=== PATIENT | male | born 1945 | race Caucasian/White ===

== ENCOUNTER → 2021-05-21 08:14 | Outpatient (BNVA) | payer OTHER, SELFPAY | PROVIDERS: PCP Family Medicine; Visit Provider Psychiatry & Neurology Neurology ==

== ENCOUNTER → 2021-07-21 08:23 | Outpatient (BNVA) | payer OTHER, SELFPAY | PROVIDERS: PCP Family Medicine; Visit Provider Nurse Practitioner Family | DX: Z13.89 Encounter for screening for other disorder (principal) ==

== ENCOUNTER → 2021-09-22 08:24 | Outpatient (BNVA) | payer OTHER, SELFPAY | PROVIDERS: PCP Family Medicine; Visit Provider Nurse Practitioner Family | DX: G57.50 Tarsal tunnel syndrome, unspecified lower limb (principal) ==

== ENCOUNTER 2022-02-06 07:18 | Outpatient (REF) | payer OTHER, SELFPAY ==
--- NOTE | ~2022-02-06 | MR_ITS ---
EXAMINATION: MR LUMBAR SPINE WITHOUT CONTRAST CLINICAL INFORMATION: 76-year-old with self-reported neuropathy in both feet, more on right. Self-reported bilateral leg pain. Tarsal tunnel syndrome, right foot numbness, radiculopathy. COMPARISON: None TECHNIQUE: MRI of the lumbar spine was obtained using routine sequences without contrast. FINDINGS: Coronal Alignment: There is S-shaped thoracolumbar scoliotic curvature, minimally convex to the right at L4-L5 and moderately convex to the left at L1-L2. Sagittal Alignment: There is trace rotatory retrolisthesis at L2-L3 asymmetric to the left. Mild rotatory retrolisthesis at L3-L4 asymmetric to the left. Lumbar lordotic curvature is maintained in the sagittal plane. Lumbosacral Junction: Normal. Five nonrib-bearing lumbar-type vertebral bodies. Vertebral Bodies: Vertebral body heights are well maintained. Disc Spaces and Endplates: Mild disc space height loss at L5-S1 with disc desiccation. Jmviomrh-tr-inzrog disc space height loss asymmetric to the left at L4-L5, with intradiscal degenerative signal changes, tiny Schmorl's nodes and siqx-sc-hkksexee spondylosis asymmetric to the left. Mild disc volume loss at L3-L4 with disc desiccation and tiny Schmorl's nodes with mild spondylosis asymmetric to the right. Ccwcqvxs-ns-meapqt disc space height loss asymmetric to the right, with disc desiccation, Schmorl's nodes and moderate spondylosis asymmetric to the right. Spinal Canal: No abnormal developmental findings. Bone Marrow: No significant marrow-replacing process or bone marrow edema. Type II degenerative marrow signal changes noted along the endplates from L2-L3 to L5-S1 inclusive. Conus Medullaris: Terminates at L1-L2. Morphology and signal is normal. Intradural Nerve Roots: Within normal limits. L5-S1: There is a central to right paramedian disc herniation which abuts the traversing right S1 nerve root and ventral thecal sac. There is minor right and mild left-sided facet arthrosis with mild left-sided neural foraminal narrowing without exiting neural impingement. No significant spinal canal stenosis. L4-L5: Minor concentric disc bulging is noted with slight flattening of the ventral dural sac asymmetric to the left. There is predominantly left-sided mild ligamentum flavum thickening with sxps-zz-cntmkcab left-sided facet arthropathy and xlig-kv-juyhzesd left subarticular recess stenosis slightly encroaching on the origin of the left S1 nerve root sleeve without evidence central spinal canal stenosis. There is jwip-ws-ifoxftrk left-sided neural foraminal stenosis without exiting neural impingement. L3-L4: There is disc bulging and central disc-osteophyte complex with a superimposed left foraminal disc protrusion, and there is rhfq-kd-pdkaneld bilateral facet arthropathy with ligamentum flavum thickening. Prominent dorsal epidural fat pad noted with mild central spinal canal stenosis. There is ssuqhguy-km-tkytxi left subarticular and lateral recess stenosis. There is moderate left-sided and mild right-sided neural foraminal stenosis without definite exiting neural impingement. L2-L3: Posterolateral disc-osteophyte complex asymmetric to the right with jpkinbcc-hw-rgowbs right-sided and kmqf-pl-otfwadxb left-sided facet arthropathy. Mild flattening of the ventral dural sac is noted without significant central spinal canal stenosis. There is irbo-tm-kbgehpye right and mild left subarticular zone and lateral recess stenosis with possible encroachment on the intradural segment of the traversing right L3 nerve root. There is tpbi-gd-usdxsruq right-sided neural foraminal stenosis, with right lateral disc-osteophyte complex contacting the extraforaminal right L2 nerve root. L1-L2: No significant disc bulge or herniation. Kvqi-sn-aijwwtjw bilateral facet arthropathy noted without significant canal stenosis. No significant neural foraminal stenosis. There is mild bilateral facet arthropathy at T12-L1 and cchp-fd-ztsetzjc bilateral facet arthropathy at T11-T12. Paraspinal/Retroperitoneal: The paravertebral soft tissues appear grossly unremarkable. MR/MR lumbar spine wo con IMPRESSION: 1. Thoracolumbar scoliotic curvature, as described above, with mild degrees of rotatory retrolisthesis at L2-L3 and L3-L4. 2. Multilevel DDD and spondylosis, as detailed by level above, with multilevel disc bulging, disc herniations and disc-osteophyte complexes, with multilevel bilateral facet arthropathy. Mild central spinal canal stenosis at L3-L4 and multilevel subarticular recess stenosis, as detailed by level above. L5-S1 disc herniation slightly impinges on the traversing right S1 nerve root. 3. Multilevel bilateral predominantly mild and ukiw-wm-usewxyso degrees of neural foraminal stenosis, as detailed by level above.
== END 2022-02-06 07:19 | disposition home or self-care (01) ==
LOC: HO.MRI 07:18
PROVIDERS: Visit Provider Nurse Practitioner Family
DX: M54.16 Radiculopathy, lumbar region (principal); R20.0 Anesthesia of skin; R20.8 Other disturbances of skin sensation
CPT/HCPCS: 72148

== ENCOUNTER → 2022-04-22 08:56 | Outpatient (BNVA) | payer OTHER, SELFPAY | PROVIDERS: PCP Family Medicine; Visit Provider Nurse Practitioner Family | DX: Z13.89 Encounter for screening for other disorder (principal) ==

== ENCOUNTER → 2022-08-20 08:57 | Outpatient (BNVA) | payer OTHER, SELFPAY | PROVIDERS: PCP Family Medicine; Visit Provider Nurse Practitioner Family ==

== ENCOUNTER 2023-05-03 14:25 | Outpatient (AMB) | payer OTHER, SELFPAY ==
--- NOTE | 2023-05-03 14:29 | MHC.OFFVIS ---
Intake Vital Signs 05/03/23 14:38 Weight 173 lb 2 oz BP 100/60 Blood Pressure Location Lt brachial Position Sitting Pulse 97 Pulse Source Pulse Oximeter Pulse Oximetry (%) 94 Oxygen Delivery Method Room Air Intake Visit Reasons: Follow up-Conf Intake Note: Patients presents for follow up acupuncture became expensive and feeling numbness on feet Allergies No Known Allergies Allergy (Verified 05/03/23 14:34) Medication List - Last Reconciled 05/03/23 by Prasanna Torres CNP lisinopril 5 mg PO DAILY pantoprazole 40 mg PO DAILY tamsulosin (Flomax) 0.4 mg PO DAILY HPI HPI Comments History of Present Illness Details 76 y/o male patient presents for follow up of bilateral feet burning pain and numbness. Pt reports that he had acupuncture therapy for couple of months, and it was helpful to reduce burning sensation and numbness. However, his insurance did not cover it, and he stopped acupuncture. Now he feels more numbness and tingling, he can't feel bottom of his feet. He uses cane to prevent fall. Pt reports bilateral feet burning but manageable. He was taking cymbalta 60 mg qAM and 30 mg qHS before acupuncture. He tried compression stocking and it also helped to relieve swollen ankle, feet pain. 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 Cervical spondylosis HTN (hypertension) Lumbar spondylosis Tarsal tunnel syndrome Surgical History H/O colonoscopy H/O hernia repair Family History Father Cancer Mother Dementia Family/Other Lung cancer Social History Alcohol intake: never Patient Tobacco Use Status: Never used Tobacco Review of Systems Const All systems reviewed & are unremarkable except as noted in HPI and below Physical Exam Vital Signs: Last Vital Signs Pulse 97 05/03/23 14:38 BP 100/60 05/03/23 14:38 Pulse Ox 94 05/03/23 14:38 Oxygen Delivery Method Room Air 05/03/23 14:38 Const General: cooperative and well developed Nutritional Appearance: average body habitus Orientation/consciousness: patient oriented x3 Neuro General: patient oriented x3, gait normal, tone normal, moves all extremities, no focal motor deficits and CN's II-XI intact bilaterally Motor exam (neuro): 5/5 motor strength present throughout Deep tendon reflexes (DTR's): Right brachioradialis reflex intensity grade: 2+, Left brachioradialis reflex intensity grade: 2+, Right patellar reflex intensity grade: 3+ and Left patellar reflex intensity grade: 4+ Psych Appearance: grossly normal Mental Status: mental status grossly normal Speech and movement: Normal speech and movement present Affect: normal affect Attitude: cooperative Assessment & Plan Assessment & Plan (1) Burning sensation of foot: Code(s): R20.8 - Other disturbances of skin sensation (2) Numbness of right foot: Code(s): R20.0 - Anesthesia of skin (3) Radiculopathy, lumbar region: Code(s): M54.16 - Radiculopathy, lumbar region Plan Advised patient to try cymbalta 20 mg BID to manage burning pain. May try Nirvive for feet numbness. Medications: New duloxetine 20 mg PO BID 30 days 60 caps 1RF Coding Level of Care Code Est Pt Level 3 (68727) Diagnoses Burning sensation of foot R20.8 Numbness of right foot R20.0 Radiculopathy, lumbar region M54.16
[2023-05-03 14:38] VITALS: BP 100/60; PULSE 97; O2SAT 94
== END 2023-05-03 15:04 | disposition home or self-care (01) ==
PROVIDERS: PCP Family Medicine; Visit Provider Nurse Practitioner Family
DX: R20.8 Other disturbances of skin sensation (principal); R20.0 Anesthesia of skin; M54.16 Radiculopathy, lumbar region
CPT/HCPCS: 99213

== ENCOUNTER → 2023-05-03 14:25 | Outpatient (BNVA) | payer OTHER, SELFPAY | PROVIDERS: PCP Family Medicine; Visit Provider Nurse Practitioner Family ==

== ENCOUNTER 2023-07-23 13:26 | Outpatient (AMB) | payer OTHER, SELFPAY ==
--- NOTE | 2023-07-23 13:29 | A.OFFVIS_ITS ---
Intake Vital Signs 07/23/23 13:34 Height 5 ft 11 in Weight 172 lb 8 oz BMI 24.1 BP 115/70 Blood Pressure Location Rt brachial Position Sitting Pulse 97 Pulse Source Pulse Oximeter Pulse Oximetry (%) 94 Oxygen Delivery Method Room Air Intake Visit Reasons: 2M f/u Neuropathy - COnf with Intake Note: Patient presents for 2 months F/U. Allergies No Known Allergies Allergy (Verified 07/23/23 13:33) HPI HPI Comments History of Present Illness Details 76 y/o male patient presents for follow up of bilateral feet burning pain and numbness. Pt tried Nirvive, and it helps a lot for the numbness, and he can feel bottom of his feet and ground. He uses cane to prevent fall. Pt reports bilateral feet burning but manageable. He is on cymbalta 20 mg BID. He tried amitriptyline in the past, and it helped to reduce burning pain. The burning pain is more bothersome at night, when he is rest. Pt reports that he had acupuncture therapy for couple of months, and it was helpful to reduce burning sensation and numbness. However, his insurance did not cover it, and he stopped acupuncture. He tried compression stocking and it also helped to relieve swollen ankle, feet pain. 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 Cervical spondylosis HTN (hypertension) Lumbar spondylosis Tarsal tunnel syndrome Surgical History H/O colonoscopy H/O hernia repair Family History Father Cancer Mother Dementia Family/Other Lung cancer Social History Alcohol intake: never Patient Tobacco Use Status: Never used Tobacco Review of Systems Const All systems reviewed & are unremarkable except as noted in HPI and below Physical Exam Vital Signs: Last Vital Signs Pulse 97 07/23/23 13:34 BP 115/70 07/23/23 13:34 Pulse Ox 94 07/23/23 13:34 Oxygen Delivery Method Room Air 07/23/23 13:34 BMI result Body Mass Index 24.1 Const General: cooperative and well developed Nutritional Appearance: average body habitus Orientation/consciousness: patient oriented x3 Neuro General: patient oriented x3, gait normal, tone normal, moves all extremities, no focal motor deficits and CN's II-XI intact bilaterally Motor exam (neuro): 5/5 motor strength present throughout Deep tendon reflexes (DTR's): Right brachioradialis reflex intensity grade: 2+, Left brachioradialis reflex intensity grade: 2+, Right patellar reflex intensity grade: 3+ and Left patellar reflex intensity grade: 4+ Psych Appearance: grossly normal Mental Status: mental status grossly normal Speech and movement: Normal speech and movement present Affect: normal affect Attitude: cooperative Assessment & Plan Assessment & Plan (1) Burning sensation of foot: Code(s): R20.8 - Other disturbances of skin sensation (2) Numbness of right foot: Code(s): R20.0 - Anesthesia of skin (3) Radiculopathy, lumbar region: Code(s): M54.16 - Radiculopathy, lumbar region Plan Advised patient to continue cymbalta 20 mg BID and start amitriptyline 25 mg q HS to manage burning pain. Continue to take Nirvive for feet numbness. Medications: New amitriptyline 25 mg PO BEDTIME 30 days 30 tabs 5RF Coding Level of Care Code Est Pt Level 3 (59531) Diagnoses Burning sensation of foot R20.8 Numbness of right foot R20.0 Radiculopathy, lumbar region M54.16
[2023-07-23 13:34] VITALS: BP 115/70; PULSE 97; O2SAT 94; BMI 24.1
== END 2023-07-23 13:52 | disposition home or self-care (01) ==
PROVIDERS: PCP Family Medicine; Visit Provider Nurse Practitioner Family
DX: R20.8 Other disturbances of skin sensation (principal); R20.0 Anesthesia of skin; M54.16 Radiculopathy, lumbar region
CPT/HCPCS: 99213

== ENCOUNTER → 2023-07-23 13:26 | Outpatient (BNVA) | payer OTHER, SELFPAY | PROVIDERS: PCP Family Medicine; Visit Provider Nurse Practitioner Family ==

== ENCOUNTER 2024-05-05 09:23 | Outpatient (REF) | payer OTHER, SELFPAY ==
--- NOTE | ~2024-05-05 | XR_ITS ---
EXAMINATION: XR LUMBAR SPINE 4 OR MORE VIEWS HISTORY: M41.9 - Scoliosis, unspecified COMPARISON: There are no prior studies for comparison. FINDINGS: AP, and neutral, flexion, and extension lateral views of the lumbar spine are submitted. Osseous mineralization is normal. There is moderate rotatory levoscoliosis. The vertebral bodies maintain normal height. There is mild retrolisthesis of L3 on L4. This does not change with flexion or extension. There is severe degenerative disc disease at L2-3, with disc space narrowing and osteophyte formation. The visualized paraspinal soft tissues are unremarkable. XR/XR lumbar spine 4V min IMPRESSION: Moderate rotatory levoscoliosis. Severe degenerative disc disease at L2-3. Mild retrolisthesis of L3 on L4 without change with flexion or extension. Electronically signed by: Ivan Cutler MD 05/08/2024 02:37 PM [email or web address]
== END 2024-05-05 09:24 | disposition home or self-care (01) ==
LOC: HO.HOSX 09:23
PROVIDERS: PCP Family Medicine; Visit Provider Neurological Surgery
DX: M41.9 Scoliosis, unspecified (principal)
CPT/HCPCS: 72110

== ENCOUNTER 2024-05-05 09:23 | Outpatient (AMB) | payer OTHER, SELFPAY ==
--- NOTE | 2024-05-05 09:30 | HO.SPINEOV ---
Vital Signs 05/05/24 09:37 Height 5 ft 11 in Weight 178 lb BMI 24.8 Intake Visit Reasons: spinal stenosis Intake Note: Mr. Higgins is here today c/o low back pain that radiates down to the legs. Quality Assurance Director Required: No Allergies No Known Allergies Allergy (Verified 05/05/24 09:37) Physical Exam Vital Signs: BMI result Body Mass Index 24.8 Assessment & Plan Assessment & Plan (1) Lumbar scoliosis: Code(s): M41.9 - Scoliosis, unspecified Category: Medical Qualifiers: Scoliosis type: idiopathic Idiopathic scoliosis type: adolescent Qualified Code(s): M41.126 - Adolescent idiopathic scoliosis, lumbar region Plan: Dear colleague On 05/05/2024, I saw Mr. Miguel A Dudley, a self-referred patient with a chief complaint of low back pain. HPI: This 78-year-old male is coming in for back pain that radiates to his buttocks and posterior thighs. The pain increases with walking and standing. The pain improves with sitting or laying down. The symptoms have significantly progressed over the last 6 months. He is currently ambulating with a cane. He likes to lean over a shopping cart. He states that he is known with a lumbar scoliosis since childhood. He has been receiving injections at [facility] but wants to try different round and therefore he is coming in to see me. He denies weakness. He does have numbness of his feet caused by a polyneuropathy. He takes amitriptyline for the polyneuropathy. The following conservative treatment options were tried without success antiinflammatories, tylenol, physical therapy, cortisone shots PMH: Polyneuropathy Medications: [] Allergies: NKDA Social history: Physical Exam: Height 6 ft weight on that 178 lb. On inspection there was a lumbar degenerative curve towards the right side. Straight leg raise post produces pain in the posterior thigh. There is hypoesthesia of the bilateral feet. A reflexia. Radiological Studies: MRI done at [place] on 10/06/2023 shows a lumbar scoliosis and moderate L3-4 spinal stenosis. A standing x-ray today confirms the lumbar scoliosis with the apex at L3-4. Impression/Plan: This patient is suffering from neurogenic claudication. This might be coming from the L3-4 region. 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 I would like to refer him to our pain management team for an L3-4 epidural steroid injection. A positive result would translate in offering the patient an L3-4 laminotomy. He is aware though that a laminotomy may only produce short lived results inpatient with scoliotic curvature. He will return to my clinic if the injection was helpful. Thank you for allowing me to participate in your patients care. total time spent was 50 minutes in counseling ,coordination of plan, personal review of imaging, surgical decision making and subsequent plan Cesar Alas MD, PhD Spine Fellowship Trained Neurosurgeon Director, [facility] (2) Lumbar stenosis with neurogenic claudication: Code(s): M48.062 - Spinal stenosis, lumbar region with neurogenic claudication Category: Medical Plan: g Orders: Orders XR lumbar spine 4V min Today M41.9 - Scoliosis, unspecified Referrals Pain Management Referral M41.126 - Adolescent idiopathic scoliosis, lumbar region, M48.062 - Spinal stenosis, lumbar region with neurogenic claudication Coding Level of Care Code New Pt Level 4 (54175) Diagnoses Adolescent idiopathic scoliosis of lumbar region M41.126 Scoliosis type: idiopathic Idiopathic scoliosis type: adolescent Lumbar stenosis with neurogenic claudication M48.062
[2024-05-05 09:37] VITALS: BMI 24.8
== END 2024-05-05 10:38 | disposition home or self-care (01) ==
PROVIDERS: PCP Family Medicine; Visit Provider Neurological Surgery
DX: M41.126 Adolescent idiopathic scoliosis, lumbar region (principal); M48.062 Spinal stenosis, lumbar region with neurogenic claudication
CPT/HCPCS: 99204

== ENCOUNTER 2024-05-17 14:07 | Outpatient (AMB) | payer OTHER, SELFPAY ==
--- NOTE | 2024-05-17 14:09 | A.OFFVIS_ITS ---
Vital Signs 05/17/24 14:15 Height 5 ft 11 in Weight 175 lb 4 oz BMI 24.4 BP 126/77 Blood Pressure Location Rt brachial Position Sitting Pulse 85 Pulse Source Pulse Oximeter Intake Visit Reasons: Adolescent idiopathic scoliosis, lumbar region Intake Note: Pain today 08/26 Rn Telephone Triage Required: No Accompanied by: Self / Same As Patient Allergies No Known Allergies Allergy (Verified 05/05/24 09:37) HPI Comments Details: Miguel A is very pleasant 78 years old gentleman who presents in my office with complains on seemingly 2 sets of pain generators. He reports aching pain in the lower back with radiation into the bilateral buttocks and he reports tingling and burning sensation in bilateral feet he reports that the pain in the buttocks started to bother him recently. He used to have radiculopathy in 1 of his lower extremities for which he received epidural steroid injections by [facility]. However this new pain is different from what he had before. He has tingling and burning feet sensation he relates to chemotherapy he received 4 prostate cancer. He is currently on duloxetine and amitriptyline, he reports that amitriptyline helps him to sleep at night however he reports very minimal effects from duloxetine. He had side effects from Lyrica, and he tried gabapentin with no effect. He reports that flexing forward and flexing backwards are both painful however flexing backwards aggravate his pain more. Walking is standing aggravate his pain and sitting alleviates his pain. Sneezing coughing and straining down does not aggravate his pain. Application of the heat makes his pain better. He is able to sleep normally he can not do activities of daily living he take care of himself he can function normally. He reports that his pain is most severe in the morning. In terms of tissue damage he reports his pain is tiring and exhausting. He had an MRI of the lumbar spine results of which dictated as below. He had physical therapy done in [facility] with core exercises with minimal pain improvement. He got massage therapy acupuncture and 10s unit which are of them relief his pain minimally. He received epidural steroid injections with [facility] in the past. His past medical history significant for hypertension and history of prostate cancer. He denies smoking cigarettes. He denies drinking alcohol he drinks 3 cups of coffee a day and he denies recreational drugs. 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 Cervical spondylosis HTN (hypertension) Lumbar spondylosis Tarsal tunnel syndrome Surgical History H/O colonoscopy H/O hernia repair Family History Father Cancer Mother Dementia Family/Other Lung cancer Social History Alcohol intake: never Patient Tobacco Use Status: Never used Tobacco Review of Systems Const Reports no additional complaints Eyes Reports no additional complaints ENT Reports Normal hearing present Card Reports no additional complaints Resp Reports no additional complaints GI Reports no additional complaints Reports as per HPI Musc Reports as per HPI Neuro Reports as per HPI, Reports Normal hearing present, Denies Abnormal speech present, Reports confusion and Denies Sensory deficit (Neuro) Psych Reports no additional complaints and Reports confusion Physical Exam Vital Signs: Last Vital Signs Pulse 85 05/17/24 14:15 BP 126/77 05/17/24 14:15 BMI result Body Mass Index 24.4 Const General: no acute distress, alert, awake, Physically active and confusion Nutritional Appearance: average body habitus Orientation/consciousness: patient oriented x3 and confusion Eyes General: appearance normal, both eyes and all related structures Pupils: Equal, round and reactive pupils present EOM: EOMs intact bilaterally Neck Neck: Yes full ROM Chest Chest palpation & inspection: normal inspection of the chest Resp Effort & Inspection: normal respiratory effort, able to speak in complete sentences, normal respiratory pattern, no audible wheezes and no cough Cardio Jugular venous distension: no JVD GI Inspection: Yes normal to inspection Back/Spine/Pelvis Other: Flexing forward and flexing backwards both aggravate his pain. Loading test is negative bilaterally. Nash test is negative bilaterally. However pelvic compression test pelvic distraction test and thigh thrust test are positive bilaterally for sacroiliac joint problem. SLR is negative bilaterally. Lassegue test is negative bilaterally. There is tenderness on palpation in bilateral sacroiliac joint projections. There is tenderness on palpation in the projection of paraspinal spinal region lumbar spine but this tenderness is less than sacroiliac joint tenderness on palpation. Neuro General: patient oriented x3, gait normal and confusion Cranial nerves: Yes CN's II-XII intact bilaterally, Yes Equal, round and reactive pupils present, Yes Normal hearing present and Yes Ability to bilaterally elevate shoulders present Speech: No Abnormal speech present Gait exam (Neuro): Normal gait present Motor exam (neuro): 5/5 motor strength present throughout Sensory Exam: No Sensory deficit (Neuro) Extrem General: No pedal edema Psych Speech and movement: Normal speech and movement present Affect: normal affect Attitude: cooperative Thought process: Normal thought process present Thought content: Normal thought content present Insight: Good insight present (Psych) Judgement: Good judgement present (Psych) Results Reviewed Results Reviewed: MR LUMBAR SPINE WITHOUT CONTRAST CLINICAL INFORMATION: 76-year-old with self-reported neuropathy in both feet, more on right. Self-reported bilateral leg pain. Tarsal tunnel syndrome, right foot numbness, radiculopathy. COMPARISON: None TECHNIQUE: MRI of the lumbar spine was obtained using routine sequences without contrast. FINDINGS: Coronal Alignment: There is S-shaped thoracolumbar scoliotic curvature, minimally convex to the right at L4-L5 and moderately convex to the left at L1-L2. Sagittal Alignment: There is trace rotatory retrolisthesis at L2-L3 asymmetric to the left. Mild rotatory retrolisthesis at L3-L4 asymmetric to the left. Lumbar lordotic curvature is maintained in the sagittal plane. Lumbosacral Junction: Normal. Five nonrib-bearing lumbar-type vertebral bodies. Vertebral Bodies: Vertebral body heights are well maintained. Disc Spaces and Endplates: Mild disc space height loss at L5-S1 with disc desiccation. Amgzsmyc-if-rmwyke disc space height loss asymmetric to the left at L4-L5, with intradiscal degenerative signal changes, tiny Schmorl's nodes and orsa-lk-fvulrvjn spondylosis asymmetric to the left. Mild disc volume loss at L3-L4 with disc desiccation and tiny Schmorl's nodes with mild spondylosis asymmetric to the right. Cvntnnwa-sm-nbnopt disc space height loss asymmetric to the right, with disc desiccation, Schmorl's nodes and moderate spondylosis asymmetric to the right. Spinal Canal: No abnormal developmental findings. Bone Marrow: No significant marrow-replacing process or bone marrow edema. Type II degenerative marrow signal changes noted along the endplates from L2-L3 to L5-S1 inclusive. Conus Medullaris: Terminates at L1-L2. Morphology and signal is normal. Intradural Nerve Roots: Within normal limits. L5-S1: There is a central to right paramedian disc herniation which abuts the traversing right S1 nerve root and ventral thecal sac. There is minor right and mild left-sided facet arthrosis with mild left-sided neural foraminal narrowing without exiting neural impingement. No significant spinal canal stenosis. L4-L5: Minor concentric disc bulging is noted with slight flattening of the ventral dural sac asymmetric to the left. There is predominantly left-sided mild ligamentum flavum thickening with xxco-qe-nfvhomox left-sided facet arthropathy and lmei-oy-piiezhuu left subarticular recess stenosis slightly encroaching on the origin of the left S1 nerve root sleeve without evidence central spinal canal stenosis. There is kqxt-no-fndqbxet left-sided neural foraminal stenosis without exiting neural impingement. L3-L4: There is disc bulging and central disc-osteophyte complex with a superimposed left foraminal disc protrusion, and there is kqjj-kq-srivwpzi bilateral facet arthropathy with ligamentum flavum thickening. Prominent dorsal epidural fat pad noted with mild central spinal canal stenosis. There is ztmxmkyq-my-ufpzot left subarticular and lateral recess stenosis. There is moderate left-sided and mild right-sided neural foraminal stenosis without definite exiting neural impingement. L2-L3: Posterolateral disc-osteophyte complex asymmetric to the right with ityxlkrw-ru-wgurvf right-sided and xziz-lm-yxbedokr left-sided facet arthropathy. Mild flattening of the ventral dural sac is noted without significant central spinal canal stenosis. There is skah-kc-xjnuxcqe right and mild left subarticular zone and lateral recess stenosis with possible encroachment on the intradural segment of the traversing right L3 nerve root. There is ydwj-fl-tjeogtml right-sided neural foraminal stenosis, with right lateral disc-osteophyte complex contacting the extraforaminal right L2 nerve root. L1-L2: No significant disc bulge or herniation. Pefm-ih-qkzearro bilateral facet arthropathy noted without significant canal stenosis. No significant neural foraminal stenosis. There is mild bilateral facet arthropathy at T12-L1 and ibir-ey-ssjvbnmk bilateral facet arthropathy at T11-T12. Paraspinal/Retroperitoneal: The paravertebral soft tissues appear grossly unremarkable. IMPRESSION: 1. Thoracolumbar scoliotic curvature, as described above, with mild degrees of rotatory retrolisthesis at L2-L3 and L3-L4. 2. Multilevel DDD and spondylosis, as detailed by level above, with multilevel disc bulging, disc herniations and disc-osteophyte complexes, with multilevel bilateral facet arthropathy. Mild central spinal canal stenosis at L3-L4 and multilevel subarticular recess stenosis, as detailed by level above. L5-S1 disc herniation slightly impinges on the traversing right S1 nerve root. 3. Multilevel bilateral predominantly mild and rpdb-wm-ohaqfnvb degrees of neural foraminal stenosis, as detailed by level above. Assessment & Plan Assessment & Plan (1) Vertebrogenic low back pain: Code(s): M54.51 - Vertebrogenic low back pain Category: Medical (2) Sacroiliitis: Code(s): M46.1 - Sacroiliitis, not elsewhere classified Category: Medical (3) Sacroiliac joint dysfunction of both sides: Code(s): M53.3 - Sacrococcygeal disorders, not elsewhere classified Category: Medical (4) Disc degeneration, lumbar: Code(s): M51.369 - Other intervertebral disc degeneration, lumbar region without mention of lumbar back pain or lower extremity pain Category: Medical (5) Chronic pain syndrome: Code(s): G89.4 - Chronic pain syndrome Category: Medical Plan Although on images this patient has quite advanced degenerative disc disease and Modic type 2 changes in multiple vertebra after physical exam it does not appear to be major pain generators of this patient. In my opinion sacroiliac joint pathology needs to be excluded before we address any issues from the lumbar spine. I am going to schedule him for bilateral diagnostic sacroiliac joint injection. See him after the procedure. We will discuss possibility of treatment with positive response. As of the possibility of treatment of the burning and tingling sensation in bilateral lower extremities as a result of chemotherapy for prostate CA I offered the patient Nevro SCS stimulation. Brochure was given to the patient. I will explained to the patient more details about Nevro SCS once he read the brochure. Patient Instructions: I here by testify that I spent 48 minutes in conversation with this patient as well as planning his care, evaluating his diagnostic images and evaluating his diagnostic records as well as organizing this note. Coding Level of Care Code New Pt Level 4 (35494) Diagnoses Vertebrogenic low back pain M54.51 Sacroiliitis M46.1 Sacroiliac joint dysfunction of both sides M53.3 Disc degeneration, lumbar M51.369 Chronic pain syndrome G89.4
[2024-05-17 14:15] VITALS: BP 126/77; PULSE 85; BMI 24.4
--- OUTSIDE RECORDS SUMMARY | 2024-05-17 16:26 | XMS_ITS | Clinical Summary ---
Author Organization [facility] Address [address] [place] [address] Phone Care Team Providers Care Ballast Cleaning Machine Operator Name Role Phone Phil Carrillo DO Primary Care Provider [phone] Allergies No known active allergies Medications Medication Sig Dispensed Refills Start Date End Date Status DULoxetine (CYMBALTA) [address] capsule Take 3 capsules (60 mg total) by mouth 1 (one) time each day. Active ketoconazole (NIZORAL) 2 % cream 01/12/2022 Activ e lisinopriL (PRINIVIL,ZESTRIL) 5 mg tablet Take 2 tablets (10 mg total) by mouth daily. 12/31/2021 Active pantoprazole (PROTONIX) 40 mg EC tablet Take 1 tablet (40 mg total) by mouth 1 (one) time each day. 12/30/2021 Active tamsulosin (FLOMAX) 0.4 mg 24 hr capsule Take 1 capsule (0.4 mg total) by mouth every night at bedtime. 01/03/2022 Active amitriptyline (ELAVIL) 50 mg tablet Take 1 tablet (50 mg total) by mouth. at bedtime. Active Active Problems Problem Noted Date Diagnosed Date Prostate cancer 07/28/2022 Encounters Date Type Department Care Team Description 03/21/2024 10:00 AM EST Office Visit [facility] Hematology Oncology [address] [place] [address] Monica Huynh MD Prostate cancer (CMS/HCC) (Primary Dx) 02/09/2024 8:03 AM EDT - 02/17/2024 11:59 PM EDT Hospital Encounter [facility] [address] [place] [phone] Monica Huynh MD from Last 3 Months Immunizations Name Administration Dates Next Due Pfizer (ages 12 & older) CATALINO S-CoV-2 COVID-19, mRNA, LNP-S, darshan-sucrose, preservative free 08/26/2021 Pfizer SARS-CoV-2 COVID-19, mRNA, LNP-S, preservative free 01/24/2021,07/01/2020,06/08/2020 Social History Tobacco Use Types Packs/Day Years Used Date Smoking Tobacco: Former Smokeless Tobacco: Never Tobacco Cessation:Counseling Given: Not Answered Alcohol Use Standard Drinks/Week Comments Yes 0 (1 standard drink = 0.6 oz pur e alcohol) Sex and Gender Information Value Date Recorded Sex Assigned at Not on file Gender Identity Not on file Sexual Orientation Not on file Job Start Date Occupation Industry Not on file Not on file Not on file Obstetrics History Last Filed Vital Signs Vital Sign Reading Time Taken Comments Blood Pressure 132/67 03/21/2024 10:03 AM EST Pulse 82 03/21/2024 10:03 AM EST Temperature 37.2 ??C (98.9 ??F) 03/21/2024 10:[address] Respiratory Rate - - Oxygen Saturation 97% 03/21/2024 10:03 AM EST Inhaled Oxygen Concentration - - Weight 82.6 kg (182 lb) 03/21/2024 10:03 AM EST Height 180.3 cm (5' 11 ) 07/19/2023 10:46 AM EDT Body Mass Index 25.38 07/19/2023 10:46 AM EDT Plan of Treatment Upcoming Encounters Date Type Department Care Team (Late st Contact Info) Description 08/09/2024 8:30 AM EDT Appointment [address] [phone] 02/28/2025 10:00 AM EST Office Visit [facility] Hematology Oncology [address] [place] [phone] Monica Huynh MD [address] [place] [address] Health Maintenance Due Date Last Done Comments DTaP,Tdap,and Td Vaccines (1 - Tdap) 09/22/1966 Zoster Vaccines (1 of 2) 05/15/2009 03/20/2009 Cholesterol Screening (Lipid Panel) 03/28/2022 Depression Screening 03/28/2022 Falls Risk Assessment 03/28/2022 Hepatitis C Screening 03/28/2022 Medicare Annual Wellness Visit 03/28/2022 Social Influencers of Health Screening 03/28/2022 COVID-19 Vaccine ( season) 2023 01/12/2022, 08/26/2021, 01/24/2021, Additional history exists Hypertension/CHF/CAD Annual BMP Blood Test 03/21/2024 Pneumococcal Vaccine: 65+ Years Completed 12/19/2017, 12/09/2016, 01/16/2015 Influenza Vaccine Completed 03/11/2024, , 01/12/2022, Additional history exists RSV Immunization Patients 60+ Years Old Completed 03/11/2024, 02/06/2023 HIB Vaccines Aged Out No longer eligi ble based on patient's age to complete this topic HPV Vaccines Aged Out No longer eligi ble based on patient's age to complete this topic Hepatitis A Vaccines Aged Out No long er eligible based on patient's age to complete this topic Hepatitis B Vaccines Aged Out No long er eligible based on patient's age to complete this topic IPV Vaccines Aged Out No longer eligi ble based on patient's age to complete this topic MMR Vaccines Aged Out No longer eligi ble based on patient's age to complete this topic Meningococcal ACWY Vaccine Aged Out N o longer eligible based on patient's age to complete this topic RSV Immunization Patients Under 20 months Aged Out No longer eligible based on patient's age to complete this topic Varicella Vaccines Aged Out No longer eligible based on patient's age to complete this topic Care Teams Ballast Cleaning Machine Operator Relationship Specialty Start Date End Date Phil Carrillo DO [address] [place], [place] PCP - General Family Medicine 01/13/22
--- OUTSIDE RECORDS SUMMARY | 2024-05-17 16:26 | XMS_ITS | Encounter Summary ---
Author Organization [facility] Address [address] [place] [address] Care Team Providers Care Non Destructive Testing Inspector Name Role Phone Phil Carrillo DO Primary Care Provider [phone] Encounter Details Date Type Department Care Team [...] file Not on file Not on file documented as of this [...] Info) Description 08/09/2024 8:30 AM EDT Appointment [facility] [address] [place] [phone] 02/28/2025 10:00 AM EST Office Visit [facility] Hematology Oncology [address] [place] [phone] Monica Huynh MD [address] [place] [address] documented as of this encounter Visit Diagnoses Not on filedocumented in this encounter Care Teams Non Destructive Testing Inspector Relationship Specialty Start Date End Date Phil Carrillo DO [address] [place], [place] PCP - General Family Medicine 01/13/22 documented as of this encounter
--- OUTSIDE RECORDS SUMMARY | 2024-05-17 16:26 | XMS_ITS | Clinical Summary ---
Author Organization [facility] Address [address] [place] [address] Care Team Providers Care Scale Assembly Set Up Worker Name Role Phone Phil Carrillo MD Primary Care Provider [phone] Allergies No known active allergies Medications Medication Sig Dispensed Refills Start Date End Date Status ketoconazole (NIZORAL) 2 % cream 0 01/12/2022 Active lisinopril (PRINIVIL,ZESTRIL) tablet 5 mg Take 2 tablets (10 mg total) by mouth daily. 0 12/31/2021 Active pantoprazole (PROTONIX) 40 MG tablet Take 1 tablet (40 mg total) by mouth daily. 0 12/30/2021 Active tamsulosin (FLOMAX) 0.4 MG CAPS Take 1 capsule (0.4 mg total) by mouth every night at bedtime. 0 01/03/2022 Active DULoxetine (CYMBALTA) DR capsule 20 mg Take 1 capsule (20 mg total) by mouth daily. 0 Active pregabalin (LYRICA) 75 MG capsule Take 1 capsule (75 mg total) by mouth 2 (two) times a day. Takes 60 mg once a day per pt 0 11/16/2023 Active amitriptyline (ELAVIL) tablet 50 mg Take 1 tablet (50 mg total) by mouth every night at bedtime. 0 02/01/2024 Active Active Problems Problem Noted Date Diagnosed Date Prostate cancer 07/28/2022 Social History Tobacco Use Types Packs/Day Years Used Date Smoking Tobacco: Former Smokeless Tobacco: Never Alcohol Use Standard Drinks/Week Comments Yes 0 (1 standard drink = 0.6 oz pur e alcohol) Occasional Sex and Gender Information Value Date Recorded Sex Assigned at Not on file Gender Identity Not on file Sexual Orientation Not on file Job Start Date Occupation Industry Not on file Not on file Not on file Last Filed Vital Signs Vital Sign Reading Time Taken Comments Blood Pressure 137/47 02/09/2024 8:12 AM EDT Pulse 67 02/09/2024 8:12 AM EDT Temperature 36.7 ??C (98 ??F) 02/09/2024 8:12 AM EDT Respiratory Rate 20 08/10/2023 8:00 AM EDT Oxygen Saturation 100% 02/09/2024 8:12 AM EDT Inhaled Oxygen Concentration - - Weight 77.1 kg (170 lb) 07/19/2023 10:46 AM EDT Height 180.3 cm (5' 11 ) 07/19/2023 10:46 AM EDT Body Mass Index 23.71 07/19/2023 10:46 AM EDT Plan of Treatment Health Maintenance Due Date Last Done Comments Hepatitis C Screening 1945 Depression Screening 1959 Preventative Health Evaluation 09/22/1965 DTap / Tdap / Td (1 - Tdap) 09/22/1966 Shingrix-Zoster Vaccine (1 of 2) 09/22/1966 Fall Risk Assessment 09/22/2012 COVID-19 Vaccine ( season) 2023 08/26/2021, 01/24/2021, 07/01/2020, Additional history exists Influenza Vaccine (#1) 2023 , 01/12/2022, 01/24/2021, Additional history exists Pneumococcal Vaccine Completed 12/19/2017, 12/09/2016, 01/16/2015 RSV Adult > 60+ Yrs or Completed 02/06/2023 Hepatitis B Vaccines Aged Out No long er eligible based on patient's age to complete this topic RSV Ped < 20 months Aged Out No longe r eligible based on patient's age to complete this topic Care Teams Scale Assembly Set Up Worker Relationship Specialty Start Date End Date Phil Carrillo MD [address] [place] [phone] PCP - General Family Medicine 01/13/22
--- OUTSIDE RECORDS SUMMARY | 2024-05-17 16:26 | XMS_ITS ---
Author Organization [facility] Address [address] [place] [phone] Care Team Providers Care Can Striper Name Role Phone Phil Carrillo MD Primary Care Provider [phone] Active Problems Problem Noted Date Diagnosed Date Prostate cancer 07/28/2022 Current Oncology Plans [facility] LEUPROLIDE 45 MG (ELIGARD) EVERY 6 MONTHS* Plan Start Date:08/10/2023 Plan Provider:Monica Huynh MD Linked Problems Prostate cancer (HCC) Treatment Medications leuprolide (ELIGARD) Past Plans ONCOLOGY INFUSION THERAPY Plan Name Start Date Discontinue Date Treatment Medications Discontinue Reason Plan Provider [facility] LEUPROLIDE 45 MG (ELIGARD) EVERY 6 MONTHS 08/10/2022 08/09/2023 leuprolide (ELIGARD) Therapy Complete Monica Huynh MD Radiation Treatments * No radiation treatments are documented for this patient in [facility]. Treatments may have been administered in another system.
== END 2024-05-17 15:10 | disposition home or self-care (01) ==
PROVIDERS: PCP Family Medicine; Referring Provider Neurological Surgery; Visit Provider Anesthesiology
DX: M54.51 Vertebrogenic low back pain (principal); M46.1 Sacroiliitis, not elsewhere classified; M53.3 Sacrococcygeal disorders, not elsewhere classified; M51.369 Other intervertebral disc degeneration, lumbar region without mention of lumbar back pain or lower extremity pain; G89.4 Chronic pain syndrome
CPT/HCPCS: 99204

== ENCOUNTER 2024-07-18 06:33 | Outpatient (REF) | payer OTHER, SELFPAY ==
--- NOTE | ~2024-07-18 | FL_ITS ---
EXAMINATION: FL GUIDANCE ONLY HISTORY: M53.3 - Sacrococcygeal disorders, not elsewhere classified COMPARISON: None available. TECHNIQUE: Fluoroscopy time: 0.2 minutes. Cumulative Dose: 2.98 mGy. DAP: 0.0305 mGym2 Images: 2. FINDINGS: Images demonstrate needles and contrast material in the regions of the bilateral sacroiliac joints. FL/FL guidance in treatment room IMPRESSION: Fluoroscopy during procedure. Please see procedure report for additional information. Electronically signed by: Ivan Cutler MD 07/19/2024 07:02 AM EDT
--- OUTSIDE RECORDS SUMMARY | 2024-07-18 06:36 | XMS_ITS | Clinical Summary ---
Author Organization [facility] Address [address] [place] [address] Care Team Providers Care Touch Up Painter Name Role Phone Phil Carrillo MD Primary Care Provider [phone] Allergies No known active allergies Medications Medication [...] age to complete this topic Care Teams Touch Up Painter Relationship Specialty Start Date End Date Phil Carrillo MD [address] [place] [phone] PCP - General Family Medicine 01/13/22
--- OUTSIDE RECORDS SUMMARY | 2024-07-18 06:36 | XMS_ITS ---
Author Organization [facility] Address [address] [place] [address] Care Team Providers Care Facility Practice Specialist Name Role Phone Phil Carrillo MD Primary Care Provider [phone] Active Problems Problem Noted Date Diagnosed Date [...] treatments are documented for this patient in [facility]. Treatments may have been administered in another system.
--- OUTSIDE RECORDS SUMMARY | 2024-07-18 06:36 | XMS_ITS | Clinical Summary ---
Author Organization [facility] Address [address] [place] [address] Phone Care Team Providers Care Loan Adviser Name Role Phone Phil Carrillo DO Primary Care Provider [phone] Allergies No known active allergies Medications DULoxetine (CYMBALTA) [address] capsule Take 3 capsules (60 mg total) by mouth 1 (one) time each day. Active ketoconazole (NIZORAL) 2 % cream 01/12/2022 Active lisinopriL (PRINIVIL,ZESTR IL) 5 mg tablet Take 2 tablets (10 [...] Noted Date Diagnosed Date Prostate cancer 07/28/2022 Immunizations Name Administration Dates Next Due MaPS (ages 12 & older) CATALINO S-CoV-2 COVID-19, [...] on file Sexual Orientation Not on file Obstetrics History Last Filed [...] Info) Description 08/09/2024 8:30 AM EDT Appointment [facility] [address] [phone] 02/28/2025 10:00 AM EST Office Visit [facility] Hematology Oncology [address] [place] [phone] Monica Huynh MD [address] [place] [address] Health Maintenance Due Date Last Done Comments [...] Annual BMP Blood Test 03/21/2024 Pneumococcal Vaccine: 50+ Years Completed 12/19/2017, 12/09/2016, 01/16/2015 Influenza Vaccine [...] patient's age to complete this topic Meningococcal B Vacine Aged Out No lo nger eligible based on patient's age to complete this topic RSV Immunization Patients Under 20 months Aged Out No longer eligible based on patient's age to complete this topic Varicella Vaccines Aged Out No longer eligible based on patient's age to complete this topic Insurance * Guarantor: Miguel A Dudley Account Type Relation to Patient Date of Phone Billing Address Personal/Family Self 1945 [address] [facility] [place] [address] [employer] [place] [employer] Care Teams Loan Adviser Relationship Specialty Start Date End Date Phil Carrillo DO [address] [place], [place] PCP - General Family Medicine 01/13/22
--- OUTSIDE RECORDS SUMMARY | 2024-07-18 06:36 | XMS_ITS | Encounter Summary ---
Author Organization [facility] Address [address] [place] [address] Care Team Providers Care Weed Controller Name Role Phone Phil Carrillo DO Primary Care Provider [phone] Encounter Details Date Type Department Care Team [...] Info) Description 08/09/2024 8:30 AM EDT Appointment [facility] [address] [place] [phone] 02/28/2025 10:00 AM EST Office Visit [facility] Hematology Oncology [address] [place] [phone] Monica Huynh MD [address] [place] [address] documented as of this encounter Visit Diagnoses Not on filedocumented in this encounter Care Teams Weed Controller Relationship Specialty Start Date End Date Phil Carrillo DO [address] [place], [place] PCP - General Family Medicine 01/13/22 documented as of this encounter
== END 2024-07-18 06:34 | disposition home or self-care (01) ==
LOC: CF 06:33
PROVIDERS: Visit Provider Anesthesiology
DX: M53.3 Sacrococcygeal disorders, not elsewhere classified (principal); M54.51 Vertebrogenic low back pain; M46.1 Sacroiliitis, not elsewhere classified; M51.369 Other intervertebral disc degeneration, lumbar region without mention of lumbar back pain or lower extremity pain; G89.4 Chronic pain syndrome
CPT/HCPCS: 27096; J2003; J2795; Q9967

== ENCOUNTER 2024-07-18 14:06 | Outpatient (AMB) | payer OTHER, SELFPAY ==
[2024-07-18 14:14] VITALS: BP 141/63; PULSE 92; RESP 15; O2SAT 97
--- NOTE | 2024-07-18 14:14 | A.OFFVIS_ITS ---
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 Turbines Assembler Required: No Allergies No Known Allergies Allergy (Verified 07/18/24 14:15) Medication List - Last Reconciled 07/18/24 by Lou Mayo LPN amitriptyline 50 mg PO BEDTIME 30 days duloxetine 60 mg PO DAILY 30 days lisinopril mg PO DAILY pantoprazole 40 mg PO DAILY tamsulosin (Flomax) 0.4 mg PO DAILY PFSH Medical History 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 Cervical spondylosis HTN (hypertension) Lumbar spondylosis Tarsal tunnel syndrome Surgical History H/O colonoscopy H/O hernia repair Family History Father Cancer Mother Dementia Family/Other Lung cancer Social History Alcohol intake: never Patient Tobacco Use Status: Never used Tobacco Physical Exam Vital Signs: Last Vital Signs Pulse 78 07/18/24 15:04 Resp 16 07/18/24 15:04 BP 111/61 07/18/24 15:04 Pulse Ox 99 07/18/24 15:04 Oxygen Delivery Method Room Air 07/18/24 15:04 Assessment & Plan Assessment & Plan (1) Vertebrogenic low back pain: Code(s): M54.51 - Vertebrogenic low back pain Category: Medical (2) Sacroiliitis: Code(s): M46.1 - Sacroiliitis, not elsewhere classified Category: Medical (3) Sacroiliac joint dysfunction of both sides: Code(s): M53.3 - Sacrococcygeal disorders, not elsewhere classified Category: Medical (4) Disc degeneration, lumbar: Code(s): M51.369 - Other intervertebral disc degeneration, lumbar region without mention of lumbar back pain or lower extremity pain Category: Medical (5) Chronic pain syndrome: Code(s): G89.4 - Chronic pain syndrome Category: Medical Plan: Bilateral sacroiliac joint injection diagnostic. Informed consent was thoroughly explained to the patient before the procedure.? The patient came to the operating room.?She was positioned prone on operating table with a pillow under her abdomen.? Time-out was performed delineating correct site and side of the procedure, nature of the injection, name and date of of the patient. The lower back and upper buttocks of the patient was prepped with ChloraPrep and draped with sterile utility towels.? C-arm was brought over the operating field and picture of right sacroiliac joint was demonstrated on the screen. Tilting machine contralateral left 20 degrees from the midline the anterior portion of the silhouette of the joint was superimposed on posterior portion of the silhouette of the joint. The skin was anesthetized with mixture of ropivacaine 0.5% and lidocaine 2% one-to-one slightly medial to the silhouette of the sacroiliac joint. 22 gauge 3-1/2 inch spinal needle was inserted through the skin wheal and advanced to the sacroiliac joint. When tip of the needle entered the sacroiliac joint injection of the contrast performed delineating arthrogram. After that 4 cc of ropivacaine was injected into the joint. After that the procedure was repeated on the left joint in the mirroring fashion. Upon completion of the injection needle was removed and sterile bandades were applied Patient tolerated the procedure well. Plan Although on images this patient has quite advanced degenerative disc disease and Modic type 2 changes in multiple vertebra after physical exam it does not appear to be major pain generators of this patient. In my opinion sacroiliac joint pathology needs to be excluded before we address any issues from the lumbar spine. I am going to schedule him for bilateral diagnostic sacroiliac joint injection. See him after the procedure. We will discuss possibility of treatment with positive response. As of the possibility of treatment of the burning and tingling sensation in bilateral lower extremities as a result of chemotherapy for prostate CA I offered the patient Nevro SCS stimulation. Brochure was given to the patient. I will explained to the patient more details about Nevro SCS once he read the brochure. Orders: Orders FL guidance in treatment room Today M53.3 - Sacrococcygeal disorders, not elsewhere classified Coding Level of Care Code Procedure Only Diagnoses Vertebrogenic low back pain M54.51 Sacroiliitis M46.1 Sacroiliac joint dysfunction of both sides M53.3 Disc degeneration, lumbar M51.369 Chronic pain syndrome G89.4
[2024-07-18 15:04] VITALS: BP 111/61; PULSE 78; RESP 16; O2SAT 99
--- OUTSIDE RECORDS SUMMARY | 2024-07-18 16:52 | XMS_ITS | Clinical Summary ---
Author Organization [facility] Address [address] [place] [address] Phone Care Team Providers Care Data Operations Director Name Role Phone Phil Carrillo DO Primary Care Provider [phone] Allergies No known active allergies Medications DULoxetine [...] 07/28/2022 Immunizations Name Administration Dates Next Due Sellaround (ages 12 & older) CATALINO S-CoV-2 COVID-19, [...] Info) Description 08/09/2024 8:30 AM EDT Appointment [facility] [address] [phone] 02/28/2025 10:00 AM EST Office Visit [facility] Hematology Oncology [address] [place] [phone] Monica Huynh MD [address] [place] [address] Health Maintenance Due Date Last Done Comments [...] Phone Billing Address Personal/Family Self 1945 [address] [facility] [place] [address] [employer] [place] [employer] Care Teams Data Operations Director Relationship Specialty Start Date End Date Phil Carrillo DO [address] [place], [place] PCP - General Family Medicine 01/13/22
--- OUTSIDE RECORDS SUMMARY | 2024-07-18 16:52 | XMS_ITS ---
Author Organization [facility] Address [address] [place] [address] Care Team Providers Care Tire Servicer Name Role Phone Phil Carrillo MD Primary Care Provider [phone] Active Problems Problem Noted Date Diagnosed Date [...] treatments are documented for this patient in [facility]. Treatments may have been administered in another system.
--- OUTSIDE RECORDS SUMMARY | 2024-07-18 16:52 | XMS_ITS | Clinical Summary ---
Author Organization [facility] Address [address] [place] [address] Care Team Providers Care Cash Management Clerk Name Role Phone Phil Carrillo MD Primary Care Provider [phone] Allergies No known active allergies Medications Medication [...] age to complete this topic Care Teams Cash Management Clerk Relationship Specialty Start Date End Date Phil Carrillo MD [address] [place] [address] PCP - General Family Medicine 01/13/22
--- OUTSIDE RECORDS SUMMARY | 2024-07-18 16:52 | XMS_ITS | Encounter Summary ---
Author Organization [facility] Address [address] [place] [address] Care Team Providers Care Product Applications Scientist Name Role Phone Phil Carrillo DO Primary Care Provider [phone] Encounter Details Date Type Department Care Team [...] Description 08/09/2024 8:30 AM EDT Appointment [facility] [address] [place] [phone] 02/28/2025 10:00 AM EST Office Visit [facility] Hematology Oncology [address] [place] [phone] Monica Huynh MD [address] [place] [address] documented as of this encounter Visit Diagnoses Not on filedocumented in this encounter Care Teams Product Applications Scientist Relationship Specialty Start Date End Date Phil Carrillo DO [address] [place], [place] PCP - General Family Medicine 01/13/22 documented as of this encounter
== END 2024-07-18 14:55 | disposition home or self-care (01) ==
LOC: HO.PMCPRC 14:06
PROVIDERS: PCP Family Medicine; Visit Provider Anesthesiology
DX: M46.1 Sacroiliitis, not elsewhere classified (principal); M53.3 Sacrococcygeal disorders, not elsewhere classified; M51.369 Other intervertebral disc degeneration, lumbar region without mention of lumbar back pain or lower extremity pain; M54.51 Vertebrogenic low back pain; G89.4 Chronic pain syndrome
CPT/HCPCS: 27096

== ENCOUNTER 2024-07-20 12:50 | Outpatient (AMB) | payer OTHER, SELFPAY ==
[2024-07-20 12:51] VITALS: BP 137/61; PULSE 82; O2SAT 94; BMI 24.9
--- NOTE | 2024-07-20 12:51 | MHC.OFFVIS ---
Vital Signs 07/20/24 12:51 Height 5 ft 11 in Weight 178 lb 6 oz BMI 24.9 BP 137/61 Blood Pressure Location Lt brachial Position Sitting Pulse 82 Pulse Source Pulse Oximeter Pulse Oximetry (%) 94 Oxygen Delivery Method Room Air Intake Visit Reasons: BILATERAL DIAGNOSTIC SIJ INJECTIONS Allergies No Known Allergies Allergy (Verified 07/20/24 12:51) HPI Comments Details: Miguel A is back in my office after diagnostic bilateral sacroiliac joint injection. Unfortunately the injection did not help his pain. He reports pain aggravation after the procedure. I re-examined the patient and the only idea I could come up with was diagnostic medial branch block of the lower lumbar joints. However the patient was not very eager to go for yet another injection. He asked me for alternatives. I decided to send him for physical therapy. He reports that in the past his lower back pain was minimally helped with physical therapy. I told him to lie more efforts and exercise more frequently and then physical therapy will be more effective for his pain. As of his pain in bilateral feet severe neuropathic pain in burning and sharp scraping sensation secondary to chemotherapy to treatment for prostate cancer he agreed to go for a trial of Nevro SCS. I will schedule him for the procedure after he will pass the psychological evaluation. Advantage point brochure was given to the patient. 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 HTN (hypertension) Surgical History H/O colonoscopy H/O hernia repair Family History Father Cancer Mother Dementia Family/Other Lung cancer Social History Alcohol intake: never Patient Tobacco Use Status: Never used Tobacco Review of Systems Const All systems reviewed & are unremarkable except as noted in HPI and below ENT Reports Normal hearing present Neuro Reports Normal hearing present, Denies Abnormal speech present, Reports confusion and Denies Sensory deficit (Neuro) Psych Reports confusion Physical Exam Vital Signs: Last Vital Signs Pulse 82 07/20/24 12:51 BP 137/61 07/20/24 12:51 Pulse Ox 94 07/20/24 12:51 Oxygen Delivery Method Room Air 07/20/24 12:51 BMI result Body Mass Index 24.9 Const General: no acute distress, alert, awake, Physically active and confusion Nutritional Appearance: average body habitus Orientation/consciousness: patient oriented x3 and confusion Eyes General: appearance normal, both eyes and all related structures Pupils: Equal, round and reactive pupils present EOM: EOMs intact bilaterally Neck Neck: Yes full ROM Chest Chest palpation & inspection: normal inspection of the chest Resp Effort & Inspection: normal respiratory effort, able to speak in complete sentences, normal respiratory pattern, no audible wheezes and no cough Cardio Jugular venous distension: no JVD GI Inspection: Yes normal to inspection Back/Spine/Pelvis Other: Flexing forward and flexing backwards both aggravate his pain. Loading test is negative bilaterally. Nash test is negative bilaterally. However pelvic compression test pelvic distraction test and thigh thrust test are positive bilaterally for sacroiliac joint problem. SLR is negative bilaterally. Lassegue test is negative bilaterally. There is tenderness on palpation in bilateral sacroiliac joint projections. There is tenderness on palpation in the projection of paraspinal spinal region lumbar spine but this tenderness is less than sacroiliac joint tenderness on palpation. Neuro General: patient oriented x3, gait normal and confusion Cranial nerves: Yes CN's II-XII intact bilaterally, Yes Equal, round and reactive pupils present, Yes Normal hearing present and Yes Ability to bilaterally elevate shoulders present Speech: No Abnormal speech present Gait exam (Neuro): Normal gait present Motor exam (neuro): 5/5 motor strength present throughout Sensory Exam: No Sensory deficit (Neuro) Extrem General: No pedal edema Psych Speech and movement: Normal speech and movement present Affect: normal affect Attitude: cooperative Thought process: Normal thought process present Thought content: Normal thought content present Insight: Good insight present (Psych) Judgement: Good judgement present (Psych) Assessment & Plan Assessment & Plan (1) Vertebrogenic low back pain: Code(s): M54.51 - Vertebrogenic low back pain Category: Medical (2) Sacroiliitis: Code(s): M46.1 - Sacroiliitis, not elsewhere classified Category: Medical (3) Sacroiliac joint dysfunction of both sides: Code(s): M53.3 - Sacrococcygeal disorders, not elsewhere classified Category: Medical (4) Disc degeneration, lumbar: Code(s): M51.369 - Other intervertebral disc degeneration, lumbar region without mention of lumbar back pain or lower extremity pain Category: Medical (5) Chronic pain syndrome: Code(s): G89.4 - Chronic pain syndrome Category: Medical Plan Although on images this patient has quite advanced degenerative disc disease and Modic type 2 changes in multiple vertebra after physical exam it does not appear to be major pain generators of this patient. Diagnostic Sacroiliac joint injections resulted in no improvement of the pain of the patient. I offered him diagnostic medial branch blocks however the patient was not very eager to go for the injection. He asked me to schedule him for physical therapy. I made an open order for him to go to physical therapy to his choice. We discuss neuropathic pain treatment with Nevro SCS last time. He is willing to go for the trial. He needs to go for psychological evaluation. The brochure was given to the patient. Orders: Orders PT Evaluation and Treatment Today G89.4 - Chronic pain syndrome, M46.1 - Sacroiliitis, not elsewhere classified, M51.369 - Other intervertebral disc degeneration, lumbar region without mention of lumbar back pain or lower extremity pain, M53.3 - Sacrococcygeal disorders, not elsewhere classified, M54.51 - Vertebrogenic low back pain Patient Instructions: I here by testify that I spent 30 minutes in conversation with this patient as well as planning his care, re-evaluating prior records and prior diagnostic studies as well as organizing this note. Coding Level of Care Code Est Pt Level 4 (98463) Diagnoses Vertebrogenic low back pain M54.51 Sacroiliitis M46.1 Sacroiliac joint dysfunction of both sides M53.3 Disc degeneration, lumbar M51.369 Chronic pain syndrome G89.4
--- OUTSIDE RECORDS SUMMARY | 2024-07-20 13:56 | XMS_ITS ---
Author Organization [facility] Address [address] [place] [address] Care Team Providers Care Cloth Handler Name Role Phone Phil Carrillo MD Primary Care Provider [phone] Active Problems Problem Noted Date Diagnosed Date [...] treatments are documented for this patient in [facility]. Treatments may have been administered in another system.
--- OUTSIDE RECORDS SUMMARY | 2024-07-20 13:56 | XMS_ITS | Clinical Summary ---
Author Organization [facility] Address [address] [place] [address] Phone Care Team Providers Care Feed Management Advisor Name Role Phone Phil Carrillo DO Primary Care Provider [phone] Allergies No known active allergies Medications DULoxetine [...] 07/28/2022 Immunizations Name Administration Dates Next Due JumpPost (ages 12 & older) CATALINO S-CoV-2 COVID-19, [...] Info) Description 08/09/2024 8:30 AM EDT Appointment [facility] [address] [phone] 02/28/2025 10:00 AM EST Office Visit [facility] Hematology Oncology [address] [place] [phone] Monica Huynh MD [address] [place] [address] Health Maintenance Due Date Last Done Comments [...] , 01/12/2022, Additional history exists RSV Immunization Adult Patients Completed 03/11/2024, 02/06/2023 HIB Vaccines Aged Out [...] patient's age to complete this [place] [id number] [employer] [place] Care Teams Feed Management Advisor Relationship Specialty Start Date End Date Phil Carrillo DO [address] [place], [place] PCP - General Family Medicine 01/13/22
--- OUTSIDE RECORDS SUMMARY | 2024-07-20 13:56 | XMS_ITS | Clinical Summary ---
Author Organization [facility] Address [address] [place] [address] Care Team Providers Care Technical Services Coordinator Name Role Phone Phil Carrillo MD Primary Care Provider [phone] Allergies No known active allergies Medications Medication [...] age to complete this topic Care Teams Technical Services Coordinator Relationship Specialty Start Date End Date Phil Carrillo MD [address] [place] [address] PCP - General Family Medicine 01/13/22
--- OUTSIDE RECORDS SUMMARY | 2024-07-20 13:56 | XMS_ITS | Encounter Summary ---
Author Organization [facility] Address [address] [place] [address] Care Team Providers Care Skiver Blockers Name Role Phone Phil Carrillo DO Primary Care Provider [phone] Encounter Details Date Type Department Care Team [...] Info) Description 08/09/2024 8:30 AM EDT Appointment [facility] [address] [place] [phone] 02/28/2025 10:00 AM EST Office Visit [facility] Hematology Oncology [address] [place] [phone] Monica Huynh MD [address] [place] [address] documented as of this encounter Visit Diagnoses Not on filedocumented in this encounter Care Teams Skiver Blockers Relationship Specialty Start Date End Date Phil Carrillo DO [address] [place], [place] PCP - General Family Medicine 01/13/22 documented as of this encounter
== END 2024-07-20 13:23 | disposition home or self-care (01) ==
LOC: HO.PMC 12:50
PROVIDERS: PCP Family Medicine; Visit Provider Anesthesiology
DX: M54.51 Vertebrogenic low back pain (principal); M46.1 Sacroiliitis, not elsewhere classified; M53.3 Sacrococcygeal disorders, not elsewhere classified; M51.369 Other intervertebral disc degeneration, lumbar region without mention of lumbar back pain or lower extremity pain; G89.4 Chronic pain syndrome
CPT/HCPCS: 99214

== ENCOUNTER 2024-07-24 13:52 | Outpatient (AMB) | payer OTHER, SELFPAY ==
--- NOTE | 2024-07-24 13:56 | MHC.OFFVIS ---
Vital Signs 07/24/24 13:57 Height 5 ft 11 in Weight 176 lb BMI 24.5 BP 120/60 Blood Pressure Location Lt brachial Position Sitting Intake Visit Reasons: Follow up Neuropathy Intake Note: Patient presents for follow up Neuropathy. med trial Amitriptyline. Sr. Strategic Sourcing Manager Required: No Accompanied by: Self / Same As Patient Allergies No Known Allergies Allergy (Verified 07/24/24 14:00) Medication List - Last Reconciled 07/24/24 by ROBINSON Garza amitriptyline 50 mg PO BEDTIME 30 days duloxetine 60 mg PO DAILY 30 days lisinopril mg PO DAILY pantoprazole 40 mg PO DAILY tamsulosin (Flomax) 0.4 mg PO DAILY HPI Comments Details: 78-yr-old male presents for chronic BLE neuralgiic pain in setting of lumbar radiculopathy and tarsal tunnel syndrome. He continues to have Bilateral feet burning snesation, describes as if his foot is falling asleep. He is not sure if he has weakness, but legs can feel heavy when walking up the stairs. He is prone to bilateral ankle swelling- tries to wear looser clothing/socks. He has BLE distal coolness and varicose veins. He is now on Duloxetine 60mg qd and amitriptyline 50mg qhs- and wonders if this can be increased. He has a history of low normal vitamin B12 levels, but then after supplementing his vitamin B12 his B12 level was greater than 4000 in 2022. 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 HTN (hypertension) Surgical History H/O colonoscopy H/O hernia repair Family History Father Cancer Mother Dementia Family/Other Lung cancer Social History Alcohol intake: never Patient Tobacco Use Status: Never used Tobacco Physical Exam Vital Signs: Last Vital Signs BP 120/60 07/24/24 13:57 BMI result Body Mass Index 24.5 Const General: cooperative, healthy appearing, comfortable and no acute distress Nutritional Appearance: average body habitus Orientation/consciousness: patient oriented x3 Neuro Other: abnormal sensation- dysesthesias in ilsa lateral foot Mild distal ankle swelling Cool feet with multiple visible tiny varicosities General: patient oriented x3, gait normal, tone normal, moves all extremities, no focal motor deficits and CN's II-XI intact bilaterally Cranial nerves: Yes CN's II-XII intact bilaterally Cognition (Neuro): normal cognition Gait exam (Neuro): Normal gait present Motor exam (neuro): 5/5 motor strength present throughout Assessment & Plan Assessment & Plan (1) Burning sensation of foot: Code(s): R20.8 - Other disturbances of skin sensation Category: Medical (2) Numbness of right foot: Code(s): R20.0 - Anesthesia of skin Category: Medical (3) Radiculopathy, lumbar region: Code(s): M54.16 - Radiculopathy, lumbar region Category: Medical (4) Anemia: Code(s): D64.9 - Anemia, unspecified Category: Medical Plan Continue amitriptyline 50 mg daily at bedtime Increase duloxetine from 60 mg daily to 90 mg daily (or alternatively fully may take 60 mg in the morning and 30 mg in the afternoon) May use OTC neuritis nerve relief. We will check labs for common underlying etiologies of paresthesias, including reassessment of vitamin B12 levels now that patient has stopped all vitamin B12 supplements. Future considerations: Vascular evaluation Will follow-up upon review of above and patient to follow-up in clinic in 6 months or sooner prn. Orders: Orders Vitamin B6 07/24/24 D64.9 - Anemia, unspecified, I10 - Essential (primary) hypertension, R20.0 - Anesthesia of skin, R20.8 - Other disturbances of skin sensation Folate 07/24/24 D64.9 - Anemia, unspecified, I10 - Essential (primary) hypertension, R20.0 - Anesthesia of skin, R20.8 - Other disturbances of skin sensation Homocysteine 07/24/24 D64.9 - Anemia, unspecified, I10 - Essential (primary) hypertension, R20.0 - Anesthesia of skin, R20.8 - Other disturbances of skin sensation Complete Blood Count Auto Diff 07/24/24 D64.9 - Anemia, unspecified, I10 - Essential (primary) hypertension, R20.0 - Anesthesia of skin, R20.8 - Other disturbances of skin sensation Comprehensive Met. Panel 07/24/24 D64.9 - Anemia, unspecified, I10 - Essential (primary) hypertension, R20.0 - Anesthesia of skin, R20.8 - Other disturbances of skin sensation Erythrocyte Sedimentation Rate 07/24/244. - Anemia, unspecified, I10 - Essential (primary) hypertension, R20.0 - Anesthesia of skin, R20.8 - Other disturbances of skin sensation CRP High Sensitivity 07/24/244.9 - Anemia, unspecified, I10 - Essential (primary) hypertension, R20.0 - Anesthesia of skin, R20.8 - Other disturbances of skin sensation IRON PROFILE 07/24/244. - Anemia, unspecified, I10 - Essential (primary) hypertension, R20.0 - Anesthesia of skin, R20.8 - Other disturbances of skin sensation Lyme IgG/IgM w/reflex to WB 07/24/244. - Anemia, unspecified, I10 - Essential (primary) hypertension, R20.0 - Anesthesia of skin, R20.8 - Other disturbances of skin sensation JEET Reflex Titer and Pattern 07/24/244. - Anemia, unspecified, I10 - Essential (primary) hypertension, R20.0 - Anesthesia of skin, R20.8 - Other disturbances of skin sensation Vitamin B12 and Folate 07/24/244. - Anemia, unspecified, I10 - Essential (primary) hypertension, R20.0 - Anesthesia of skin, R20.8 - Other disturbances of skin sensation Methylmalonic Acid 07/24/244.9 - Anemia, unspecified, I10 - Essential (primary) hypertension, R20.0 - Anesthesia of skin, R20.8 - Other disturbances of skin sensation TSH reflex Free T4 07/24/244. - Anemia, unspecified, I10 - Essential (primary) hypertension, R20.0 - Anesthesia of skin, R20.8 - Other disturbances of skin sensation Ferritin 07/24/244.9 - Anemia, unspecified, I10 - Essential (primary) hypertension, R20.0 - Anesthesia of skin, R20.8 - Other disturbances of skin sensation Vitamin B1 07/24/244.9 - Anemia, unspecified, I10 - Essential (primary) hypertension, R20.0 - Anesthesia of skin, R20.8 - Other disturbances of skin sensation Rheumatoid Factor 07/24/24 D64.9 - Anemia, unspecified, I10 - Essential (primary) hypertension, R20.0 - Anesthesia of skin, R20.8 - Other disturbances of skin sensation Medications: New duloxetine take w/ 60mg qd to total 90mg 30 mg PO DAILY 30 days 30 caps 3RF Changed From duloxetine 60 mg PO DAILY 30 days 30 caps 3RF To duloxetine take w/ 30mg to total 90mg qd 60 mg PO DAILY 30 days 30 caps 3RF Coding Level of Care Code Est Pt Level 4 (36242) Diagnoses Burning sensation of foot R20.8 Numbness of right foot R20.0 Radiculopathy, lumbar region M54.16 Anemia D64.9
[2024-07-24 13:57] VITALS: BP 120/60; BMI 24.5
--- OUTSIDE RECORDS SUMMARY | 2024-07-24 16:37 | XMS_ITS | Clinical Summary ---
Author Organization [facility] Address [address] [place] [address] Phone Care Team Providers Care Laborer Hide House Name Role Phone Phil Carrillo DO Primary Care Provider [phone] Allergies No known active allergies Medications DULoxetine [...] 07/28/2022 Immunizations Name Administration Dates Next Due Salezeo (ages 12 & older) CATALINO S-CoV-2 COVID-19, [...] Info) Description 08/09/2024 8:30 AM EDT Appointment [facility] Infusion Center [address] [phone] 02/28/2025 10:00 AM EST Office Visit [facility] Hematology Oncology [address] [place] [phone] Monica Huynh MD [address] [place] [address] Health Maintenance Due Date Last Done Comments [...] age to complete this topic Meningococcal B Vaccine Aged Out No l onger eligible based on patient's age to complete this topic RSV Immunization Patients Under 20 months Aged Out No longer eligible based on patient's age to complete this topic Varicella Vaccines Aged Out No longer eligible based on patient's age to complete [place] [id number] [employer] Care Teams Laborer Hide House Relationship Specialty Start Date End Date Phil Carrillo DO [address] [place], [place] PCP - General Family Medicine 01/13/22
--- OUTSIDE RECORDS SUMMARY | 2024-07-24 16:37 | XMS_ITS | Encounter Summary ---
Author Organization [facility] Address [address] [place] [address] Care Team Providers Care Dermatology Procedural Physician Name Role Phone Phil Carrillo DO Primary Care Provider [phone] Encounter Details Date Type Department Care Team [...] Info) Description 08/09/2024 8:30 AM EDT Appointment [facility] Infusion Center [address] [place] [phone] 02/28/2025 10:00 AM EST Office Visit [facility] Hematology Oncology [address] [place] [phone] Monica Huynh MD [address] [place] [address] documented as of this encounter Visit Diagnoses Not on filedocumented in this encounter Care Teams Dermatology Procedural Physician Relationship Specialty Start Date End Date Phil Carrillo DO [address] [place], [place] PCP - General Family Medicine 01/13/22 documented as of this encounter
--- OUTSIDE RECORDS SUMMARY | 2024-07-24 16:37 | XMS_ITS | Clinical Summary ---
Author Organization [facility] Address [address] [place] [address] Care Team Providers Care Strip Machine Tender Name Role Phone Phil Carrillo MD Primary Care Provider [phone] Allergies No known active allergies Medications Medication [...] age to complete this topic Care Teams Strip Machine Tender Relationship Specialty Start Date End Date Phil Carrillo MD [address] [place] [address] PCP - General Family Medicine 01/13/22
--- OUTSIDE RECORDS SUMMARY | 2024-07-24 16:37 | XMS_ITS ---
Author Organization [facility] Address [address] [place] [address] Care Team Providers Care Fire Sprinkler Installer Name Role Phone Phil Carrillo MD Primary Care Provider [phone] Active Problems Problem Noted Date Diagnosed Date [...] treatments are documented for this patient in [facility]. Treatments may have been administered in another system.
== END 2024-07-24 14:55 | disposition home or self-care (01) ==
LOC: HO.HSMS 13:53
PROVIDERS: PCP Family Medicine; Visit Provider Nurse Practitioner Family
DX: R20.8 Other disturbances of skin sensation (principal); R20.0 Anesthesia of skin; M54.16 Radiculopathy, lumbar region; D64.9 Anemia, unspecified
CPT/HCPCS: 99214

== ENCOUNTER 2024-09-08 08:52 | Day surgery (SDC) | payer MEDICARE, SELFPAY ==
--- OUTSIDE RECORDS SUMMARY | 2024-08-30 13:26 | XMS_ITS ---
Author Organization [facility] Address [address] [place] [address] Care Team Providers Care Table Cut Off Saw Operator Name Role Phone Phil Carrillo MD Primary Care Provider [phone] Active Problems Problem Noted Date Diagnosed Date [...] treatments are documented for this patient in [facility]. Treatments may have been administered in another system.
--- OUTSIDE RECORDS SUMMARY | 2024-08-30 13:26 | XMS_ITS ---
Author Organization [facility] Address [address] [place] [address] Phone Care Team Providers Care House Coordinator Name Role Phone Phil Carrillo DO Primary Care Provider [phone] Active Problems Problem Noted Date Diagnosed Date Prostate cancer (CMS/HCC V24, [facility] V28) 07/28 Current Oncology Plans LEUPROLIDE ( ELIGARD SQ / LUPRON IM ) 45 MG EVERY 24 WEEKS* Plan Start Date: 08/09/2024 Plan Provider:Monica Huynh MD Linked Problems Prostate cancer (CMS/HCC V24 , [facility] V28) Treatment Medications leuprolide (ELIGARD) Past Plans No past plan information found. Radiation Treatments * No radiation treatments are documented for this patient in [facility]. Treatments may have been administered in another system.
--- OUTSIDE RECORDS SUMMARY | 2024-08-30 13:26 | XMS_ITS | Encounter Summary ---
Author Organization [facility] Address [address] [place] [address] Care Team Providers Care Egg Breaker Name Role Phone Phil Carrillo DO Primary [...] Info) Description 02/07/2025 8:30 AM EDT Appointment [facility] Infusion Center [address] [place] [phone] 02/28/2025 10:00 AM EST Office Visit [facility] Hematology Oncology [address] [place] [phone] Monica Huynh MD [address] [place] [address] documented as of this encounter Visit Diagnoses Not on filedocumented in this encounter Care Teams Egg Breaker Relationship Specialty Start Date End Date Phil Carrillo DO [address] [place], [place] PCP - General Family Medicine 01/13/22 documented as of this encounter
--- OUTSIDE RECORDS SUMMARY | 2024-08-30 13:26 | XMS_ITS | Clinical Summary ---
Author Organization [facility] Address [address] [place] [address] Care Team Providers Care Audio Production Instructor Name Role Phone Phil Carrillo MD Primary Care Provider [phone] Allergies No known active allergies Medications Medication [...] age to complete this topic Care Teams Audio Production Instructor Relationship Specialty Start Date End Date Phil Carrillo MD [address] [place] [address] PCP - General Family Medicine 01/13/22
--- OUTSIDE RECORDS SUMMARY | 2024-08-30 13:26 | XMS_ITS | Clinical Summary ---
Author Organization [facility] Address [address] [place] [address] Phone Care Team Providers Care Glue Wheel Operator Name Role Phone Phil Carrillo DO Primary Care Provider [phone] Allergies No known active allergies Medications DULoxetine [...] Date Diagnosed Date Prostate cancer (CMS/HCC V24, CMS/HCC V28) 07/28 Encounters Date Type Department Care Team Description 08/09/2024 8:21 AM EDT - 08/09/2024 11:59 PM EDT Hospital Encounter [facility] Center [address] [place] [phone] Monica Huynh MD Prostate cancer ([facility] V24, [facility] V28) (Primary Dx) Discharge Disposition: Home or Self Care from Last 3 Months Immunizations Name Administration [...] Sign Reading Time Taken Comments Blood Pressure 118/54 08/09/2024 8:31 AM EDT Pulse 83 08/09/2024 8:31 AM EDT Temperature 36.7 ??C (98.1 ??F) 08/09/2024 8:31 AM ED T Respiratory Rate 18 08/09/2024 8:31 AM EDT Oxygen Saturation 100% 08/09/2024 8:31 AM EDT Inhaled Oxygen Concentration - - Weight 82.6 kg (182 lb) 03/21/2024 10:03 AM EST Height 180.3 cm (5' 11 ) 07/19/2023 10:46 AM EDT Body Mass Index 25.38 07/19/2023 10:46 AM EDT Plan of Treatment Upcoming Encounters Date Type Department Care Team (Late st Contact Info) Description 02/07/2025 8:30 AM EDT Appointment [address] [phone] 02/28/2025 10:00 AM EST Office Visit [facility] Hematology Oncology [address] [place] [phone] oMnica Huynh MD [address] [place] [address] Health Maintenance Due Date Last Done Comments DTaP,Tdap,and Td Vaccines (1 - Tdap) 09/22/1966 Zoster Vaccines (1 of 2) 05/15/2009 03/20/2009 Cholesterol Screening (Lipid Panel) 03/28/2022 Depression Screening 03/28/2022 Hepatitis C Screening 03/28/2022 Medicare Annual Wellness Visit 03/28/2022 Social Influencers of Health Screening 03/28/2022 COVID-19 Vaccine ( season) 2023 01/12/2022, 08/26/2021, 01/24/2021, Additional history exists Hypertension/CHF/CAD Annual BMP Blood Test 03/21/2024 Falls Risk Assessment 08/09/2025 08/09/2024 Pneumococcal Vaccine: 50+ Years Completed 12/19/2017, 12/09/2016, [...] patient[place] [id number] [employer] Care Teams Glue Wheel Operator Relationship Specialty Start Date End Date Phil Carrillo DO [address] [place], [place] PCP - General Family Medicine 01/13/22
[2024-09-06 14:05] VITALS: BMI 24.8
--- NOTE | 2024-09-07 12:01 | HO.ANESPROP2 ---
Documented by User: Bridget Velasco NP 09/07/24 12:03 HPI - Anesthesia Eval Consult details Narrative: 78yo M for Spinal Cord Stimulator Trial [facility] Active Problems Active Problems: All Active Problems Anemia (Acute) Chronic pain syndrome (Acute) Disc degeneration, lumbar (Acute) Sacroiliac joint dysfunction of both sides (Acute) Sacroiliitis (Acute) Vertebrogenic low back pain (Acute) Lumbar stenosis with neurogenic claudication (Acute) Lumbar scoliosis (Acute) Burning sensation of foot (Acute) Numbness of right foot (Acute) Radiculopathy, lumbar region (Acute) Tarsal tunnel syndrome (Acute) Lumbar spondylosis (Acute) Cervical spondylosis (Acute) HTN (hypertension) (Acute) Past Medical History Medical History Tarsal tunnel syndrome Lumbar spondylosis Cervical spondylosis 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 If so, by whom?: No Are you DNR?: No Advance Directives: No Advance Directives Information Provided: Yes Meds Allergies Allergy/AdvReac Type Severity Reaction Status Date / Time No Known Allergies Allergy Verified 07/24/24 14:00 Home Medications ?Medication ?Instructions ?Recorded ?Confirmed ?Last Taken ?Type pantoprazole 40 mg tablet,delayed 40 mg PO DAILY 05/20/21 09/06/24 Unknown History release tamsulosin 0.4 mg capsule (Flomax) 0.4 mg PO DAILY 05/20/21 09/06/24 Unknown History lisinopril 10 mg tablet 10 mg PO DAILY 05/17/24 09/06/24 Unknown History Exam Height,Weight and Vital Signs: Height 5 ft 11 in Weight 80.739 kg Assessment and Plan Assessment Anesthesia Assessment: Chart Reviewed Documented by User: Echo Ayala MD 09/08/24 09:31 [facility] Past Medical History Medical History Tarsal tunnel syndrome Lumbar spondylosis Cervical spondylosis 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 If so, by whom?: No Are you DNR?: No Advance Directives: No Advance Directives Information Provided: Yes Meds Allergies Allergy/AdvReac Type Severity Reaction Status Date / Time No Known Allergies Allergy Verified 07/24/24 14:00 Home Medications ?Medication ?Instructions ?Recorded ?Confirmed ?Last Taken ?Type pantoprazole 40 mg tablet,delayed 40 mg PO DAILY 05/20/21 09/06/24 Unknown History release tamsulosin 0.4 mg capsule (Flomax) 0.4 mg PO DAILY 05/20/21 09/06/24 Unknown History lisinopril 10 mg tablet 10 mg PO DAILY 05/17/24 09/06/24 Unknown History Exam Airway Mallampati Class: II TM Dist: >3cm Neck ROM: Limited Heart: rrr Lungs: cta Assessment and Plan Assessment Anesthesia Assessment: Anesthesia Plan Discussed Final Anesthetic Review Family History of Problems with Anesthesia: No History of Problems with Anesthesia: No NPO: Yes ASA Class: III Final Preanesthetic Review: No Changes in Pt Med Stat, Meds/Allgs Chart Reviewed, Consent Obtained/Reviewed and Anes Risks/Benef Reviewed Patient Risk: Intermediate Procedure Risk: Low Anesthetic Plan Anesthetic Plan: MAC: Disposition: Standard PACU
[2024-09-08] VITALS (7 sets, daily range): BP systolic 127–146; BP diastolic 56–69; PULSE 65–92; RESP 12–20; TEMP 36.1; O2SAT 94–97; BMI 25.0
--- NOTE | ~2024-09-08 | FL_ITS ---
EXAMINATION: XR FLUOROSCOPY WITH IMAGES CLINICAL INFORMATION: Spinal stimulator placement. COMPARISON: None available. TECHNIQUE: Fluoroscopy provided to: Dr. Kwok Fluoroscopy time: 3 minutes, 3 seconds DAP: 12.815 Gycm2 Images: 3 FINDINGS: 3 fluoroscopic spot images of the lower thoracic spine obtained during spinal bile stimulator placement. Please refer to the full procedural report for details. FL/FL guidance in OR IMPRESSION: Fluoroscopic guidance. Electronically signed by: Mike Joiner MD 09/08/2024 11:39 AM EDT
[2024-09-08] MEDS: Lactated Ringers 1,000 ML 100 ML IVCONT (09:15)
--- NOTE | 2024-09-08 09:28 | PC.NURSE ---
no mrsa screen needed per
--- NOTE | 2024-09-08 09:51 | MHC.SHP ---
Pre-Procedural Eval Section A - 24 Hr Update-Section A only Date of Service: 09/08/24 The patient is an INPATIENT: No Changes since office visit: Yes Patient answered all questions The patient has been examined within 24 hours of the surgical procedure. The History & Physical has been completed within 30 days and I have reviewed it.: No Section B - Complete if H&P > 30 days Chief Complaint: Sacroiliitis, not elsewhere classified Details of Present Illness: peripheral polyneuropathy Relevant Family History (Specify if Yes): No Relevant Social History: None Present Medications: see Short Stay Collaborative assessment Medical History: Significant History (chemo h/o) History of Previous Operations: No relevant previous surgery Allergies: Allergies Allergy/AdvReac Type Severity Reaction Status Date / Time No Known Allergies Allergy Verified 07/24/24 14:00 Review of Systems Sugical H&P ROS: Negative: Constitution, Cardiovascular, Respiratory, Neurological, Psychiatric, Hem-Onc, Allergic/Immunologic, Gastrointestinal, Genitourinary, Musculoskeletal, Integumentary, Endocrine and Eyes/Ears/Nose/Throat Exam Surgical H&P Exam: Normal: HEENT, Normal: Heart, Normal: Lungs, Normal: Extremities, Normal: Abdomen, Normal: Skin and Normal: Neurological Plan Diagnosis/Plan: Unchanged I have reviewed the history and physical and performed a pertinent physical examination on my patient. No changes have occurred unless specified. Time Spent With Patient Time: Total time managing care of this patient today _10___ minutes.
[2024-09-08 09:56] LABS: MANUAL DIFF FLAG NO
[2024-09-08 09:59] LABS: Basophils Percent Auto 0.4 % (0-2); Eosinophils Absolute Auto 0.1 X10*3/uL (0.0-0.4); Hematocrit 33.7 % (42.0-52.0); Hemoglobin 11.5 g/dl (14.0-18.0); Imm Gran Abs Auto 0.02 X10*3/uL (0.00-0.03); Imm Gran Pct Auto 0.3 % (0.0-0.4); Lymphocytes Percent Auto 12.7 % (20-40); Mean Corpuscular HGB Conc 34.1 g/dl (31.0-36.0); Mean Corpuscular Hemoglobin 30.1 pg (27.0-33.0); Mean Corpuscular Volume 88.2 fL (80.0-98.0); Mean Platelet Volume 9.3 fL (9.4-12.4); Monocytes Absolute Auto 0.6 X10*3/uL (0.1-1.2); Monocytes Percent Auto 8.1 % (2-11); Neutrophils Absolute Auto 6.1 x10*3/uL (2.0-8.3); Neutrophils Percent Auto 77.5 % (45-73); Platelet Count 250 X10*3/uL (160-400); Red Blood Count 3.82 X10*6/uL (4.60-5.80); Red Cell Distribution Width 12.3 % (11.0-16.0); White Blood Count 7.8 X10*3/uL (4.8-10.8)
[2024-09-08 10:04] LABS: INTERNATIONAL NORM RATIO 0.9 (0.9-1.1); Prothrombin Time 10.6 SEC (10.9-12.4)
[2024-09-08] MEDS: ceFAZolin Sodium/Dextrose,Iso 2 GM/50 ML PIGGYBACK IV (10:15)
--- NOTE | 2024-09-08 11:34 | P.OP_ITS ---
Operative Note Operative Note Date of Service: 09/08/24 Narrative: Trial of Nevro SCS. Miguel A is very pleasant 78 years old gentleman who came today into the operating room for trial of spinal cord stimulator Nevro for the treatment of neuropathic pain in bilateral feet. After obtaining informed consent were risks of bleeding infection peripheral nerve damage, spinal cord damage, headaches were explained to the patient, the patient was brought to the operating room, he was positioned prone on operating table, [employer] monitors were applied and patient was deeply sedated. Time-out was performed delineating correct site, side, the nature of the procedure, patient's allergy, preoperative antibiotic. All operating room staff was participating in OR time-out procedure. Patient's entire back was prepped with ChloraPrep twice and draped with full body drape. Sterilely draped C-arm was brought over operating field and square picture of T12, L1, L2 vertebrae as were demonstrated on the screen. . Attention FIRST was concentrated on the RIGHT T12-L1 epidural interspace. The location of the projection of the right pedicle center of the L2 vertebra was found on the skin using C-arm. This location was injected with mixture of lidocaine 2% and Marcaine 0.5% 5 cc in approximate direction of needle advancement.. After that 10 cm 14 gauge straight introducer epidural needle was inserted through the nicole in the skin and advanced toward T12-L1 epidural interspace. The advancement of the needle was performed on anterior posterior and lateral views. Guitar wire and loss of resistance technique were used to locate epidural space. When guitar wire was spread in the epidural fashion, epidural lead was inserted through the skin and it was advanced in the posterior epidural space to the mid body of bottom of T7 vertebra slightly right to midline. After that location of the projection of the LEFT pedicle center of the L2 vertebra was found -using C-arm. This location was injected with mixture of lidocaine 2% and Marcaine 0.5% 5 cc.. . 10 cm 14 gauge straight introducer epidural needle was inserted through the skin and advanced to T12-L1 epidural interspace. The advancement of the needle was performed on anterior posterior and lateral views. Guitar wire and loss of resistance technique were used to locate epidural space. When guitar wire was spread in the epidural fashion, epidural lead was inserted through the needle and it was advanced in the posterior epidural space to the level of middle of T9 vertebra. The position of the both epidural leads was verified on the lateral view, both epidural leads were appeared to be strictly posterior. After that epidural needles were removed with care taken to keep epidural leads in place. The stylettes were removed from epidural leads. After that anchoring devices were dislodged on each of the epidural lead to the level of the skin. Each lead was sutured to the skin using 0-0 silk sutures, 2 sutures per each anchoring device. After that the anchoring screw was tied up until 3 clicks were heard. Bacitracin ointment was applied to the sites of the insertion of the epidural leads. Sterile dressing was applied. At this moment patient was taken to the [facility] where he recovered uneventfully.
--- NOTE | 2024-09-08 11:35 | PM.OP ---
Brief Operative Note Date of Service: 09/08/24 Pre-op diagnosis: Peripheral polyneuropathy, spinal stenosis. Chronic pain syndrome. Post-op diagnosis: same Procedure: Trial of Nevro SCS. Implants: None permanent Surgeon: Jerald Kwok MD Was an Construction Or Leak Gang Laborer used for this Procedure?: No Estimated blood loss (mL): 2 Condition: stable Disposition: PACU
== END 2024-09-08 12:45 | disposition home or self-care (01) ==
PROVIDERS: PCP Internal Medicine; Visit Provider Anesthesiology
PROC: (CPT 63650; principal; 2024-09-08 11:00)
DX: M79.672 Pain in left foot (principal); M79.671 Pain in right foot; G63 Polyneuropathy in diseases classified elsewhere; C61 Malignant neoplasm of prostate; Z92.21 Personal history of antineoplastic chemotherapy; G89.4 Chronic pain syndrome; M48.062 Spinal stenosis, lumbar region with neurogenic claudication; I10 Essential (primary) hypertension; M54.51 Vertebrogenic low back pain; M51.369 Other intervertebral disc degeneration, lumbar region without mention of lumbar back pain or lower extremity pain; M46.1 Sacroiliitis, not elsewhere classified; Z79.899 Other long term (current) drug therapy; Z87.891 Personal history of nicotine dependence
CPT/HCPCS: 63650 ×2; 36415; 85025; 85610; C1889; C1897; J0131; J0690; J2003; J2250; J2704; J2795; J3010

== ENCOUNTER → 2024-09-08 08:52 | Outpatient (BNV) | payer MEDICARE, SELFPAY | PROVIDERS: PCP Internal Medicine; Visit Provider Anesthesiology | DX: G62.9 Polyneuropathy, unspecified (principal); M48.062 Spinal stenosis, lumbar region with neurogenic claudication; G89.4 Chronic pain syndrome | CPT/HCPCS: 63650 ==

== ENCOUNTER 2024-09-15 09:53 | Outpatient (AMB) | payer MEDICARE, SELFPAY ==
--- NOTE | 2024-09-15 10:07 | A.OFFVIS_ITS ---
Vital Signs 09/15/24 10:08 Height 5 ft 11 in Weight 178 lb BMI 24.8 BP 135/63 Blood Pressure Location Rt brachial Position Sitting Pulse 88 Pulse Source Pulse Oximeter Pulse Oximetry (%) 97 Oxygen Delivery Method Room Air Intake Visit Reasons: S/p Nevro SCS Trial 09/08/24 Intake Note: Pain today 8/10 Electronic Parts Designer Required: No Accompanied by: Self / Same As Patient Allergies No Known Allergies Allergy (Verified 09/15/24 10:08) HPI Comments Details: The patient is a 78-year-old male presents today for removal of his trial leads following lumbar SCS trial. He suffers from daily pain related to chronic peripheral polyneuropathy, spinal stenosis, chronic pain syndrome and considering Nevro SCS implantation. His neuropathic pain developed following radiation therapy for prostate cancer in 2019. Over time, the symptoms have escalated, notably manifesting as burning and sharp sensations in the soles of his feet. A recent trial of the Nevro SCS trial afforded him 75% symptom relief; following cessation, symptoms returned severely, rated as 8/10 in intensity. Patient reports he has improvement in his daily functioning, mobility, improvement with walking and sleep for duration of SCS trial and is interested to proceed with SCS implant. The tape was removed. Sensitivity to medical tape is noted as minor redness develops upon dressing removal. The stimulating battery pad was disconnected from the epidural leads. These sites of the insertion were cleansed with ChloraPrep and the sutures were severed. The epidural leads were removed and the tips were intact. No erythema, swelling, tenderness or pathological discharge was noted. Bacitracin ointment, dry sterile and Tegaderm dressing were applied. - Onset and Timing: Pain began post-radiation for prostate cancer in 2019, gradually increasing over tenure. - Quality and Character: Described as severe, burning, and sharp. - Primary Location: Pain primarily occurs in the lower extremities, particularly on the soles of the feet. - Exacerbating Factors: Deactivation of the NebroSpinal Core Stimulator. - Relieving Factors: NebroSpinal Core Stimulator trial which provided 75% relief. - Activities Affected: Impactful on walking, limiting ease of movement and daily functionality. - Affect: Significant impact on daily activities, improvement seen with stimulator. - Analgesia: Nevro Spinal Cord Stimulator trial provided 75% relief, current pain at 8/10, device shut off 2-3 hours ago. - Adverse Effects: Initial slight adjustment discomfort, sensitivity to medical tape. - Activities of Daily Living: Walking and other simple activities are affected; patient desires to resume normal activities pain-free. - Aberrant Drug Related Behaviors: No aberrant behaviors noted or discussed concerning medication use. Past Procedures: 09/08/24: Lumbar Nevro SCS trial->75% pain relief PRIOR Dr. Kwok 07/20/24: Miguel A is back in my office after diagnostic bilateral sacroiliac joint injection. Unfortunately the injection did not help his pain. He reports pain aggravation after the procedure. I re-examined the patient and the only idea I could come up with was diagnostic medial branch block of the lower lumbar joints. However the patient was not very eager to go for yet another injection. He asked me for alternatives. I decided to send him for physical therapy. He reports that in the past his lower back pain was minimally helped with physical therapy. I told him to lie more efforts and exercise more frequently and then physical therapy will be more effective for his pain. As of his pain in bilateral feet severe neuropathic pain in burning and sharp scraping sensation secondary to chemotherapy to treatment for prostate cancer he agreed to go for a trial of Nevro SCS. I will schedule him for the procedure after he will pass the psychological evaluation. Advant[employer] point brochure was given to the patient. 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 Alert and oriented. Mood and affect appropriate. Follows and participates in conversation appropriately. Respiratory effort is unlabored. Able to transition from sit to stand with assistance. Ambulates with bilaterally normal heel strike and toe off. Trial leads pulled out with tips intact.? Site looks clean, dry and intact. No pathological discharge, redness, swelling, erythema or tenderness. Site dressed with bacitracin and Tegaderm following lead removal. Sensitivity to medical tape is noted as minor redness upon dressing removal. Results Reviewed Results Reviewed: MR LUMBAR SPINE WITHOUT CONTRAST CLINICAL INFORMATION: 76-year-old with self-reported neuropathy in both feet, more on right. Self-reported bilateral leg pain. Tarsal tunnel syndrome, right foot numbness, radiculopathy. COMPARISON: None TECHNIQUE: MRI of the lumbar spine was obtained using routine sequences without contrast. FINDINGS: Coronal Alignment: There is S-shaped thoracolumbar scoliotic curvature, minimally convex to the right at L4-L5 and moderately convex to the left at L1-L2. Sagittal Alignment: There is trace rotatory retrolisthesis at L2-L3 asymmetric to the left. Mild rotatory retrolisthesis at L3-L4 asymmetric to the left. Lumbar lordotic curvature is maintained in the sagittal plane. Lumbosacral Junction: Normal. Five nonrib-bearing lumbar-type vertebral bodies. Vertebral Bodies: Vertebral body heights are well maintained. Disc Spaces and Endplates: Mild disc space height loss at L5-S1 with disc desiccation. Stygvpeq-vo-nbufqh disc space height loss asymmetric to the left at L4-L5, with intradiscal degenerative signal changes, tiny Schmorl's nodes and uzhq-eg-lbqbmqwu spondylosis asymmetric to the left. Mild disc volume loss at L3-L4 with disc desiccation and tiny Schmorl's nodes with mild spondylosis asymmetric to the right. Kmxesboc-eh-woacav disc space height loss asymmetric to the right, with disc desiccation, Schmorl's nodes and moderate spondylosis asymmetric to the right. Spinal Canal: No abnormal developmental findings. Bone Marrow: No significant marrow-replacing process or bone marrow edema. Type II degenerative marrow signal changes noted along the endplates from L2-L3 to L5-S1 inclusive. Conus Medullaris: Terminates at L1-L2. Morphology and signal is normal. Intradural Nerve Roots: Within normal limits. L5-S1: There is a central to right paramedian disc herniation which abuts the traversing right S1 nerve root and ventral thecal sac. There is minor right and mild left-sided facet arthrosis with mild left-sided neural foraminal narrowing without exiting neural impingement. No significant spinal canal stenosis. L4-L5: Minor concentric disc bulging is noted with slight flattening of the ventral dural sac asymmetric to the left. There is predominantly left-sided mild ligamentum flavum thickening with ffti-lg-cipfodon left-sided facet arthropathy and moxz-ws-avujpzqa left subarticular recess stenosis slightly encroaching on the origin of the left S1 nerve root sleeve without evidence central spinal canal stenosis. There is gnlh-ha-ziidtxpe left-sided neural foraminal stenosis without exiting neural impingement. L3-L4: There is disc bulging and central disc-osteophyte complex with a superimposed left foraminal disc protrusion, and there is fidc-nb-fzvtqged bilateral facet arthropathy with ligamentum flavum thickening. Prominent dorsal epidural fat pad noted with mild central spinal canal stenosis. There is ubjchmkz-ny-kywgnu left subarticular and lateral recess stenosis. There is moderate left-sided and mild right-sided neural foraminal stenosis without definite exiting neural impingement. L2-L3: Posterolateral disc-osteophyte complex asymmetric to the right with zkmfovng-dw-uccjdk right-sided and grit-xq-rrgxlejb left-sided facet arthropathy. Mild flattening of the ventral dural sac is noted without significant central spinal canal stenosis. There is oktk-eb-dnmckcfp right and mild left subarticular zone and lateral recess stenosis with possible encroachment on the intradural segment of the traversing right L3 nerve root. There is xdcb-nc-rdsnlokc right-sided neural foraminal stenosis, with right lateral disc-osteophyte complex contacting the extraforaminal right L2 nerve root. L1-L2: No significant disc bulge or herniation. Hprl-px-yiluqbph bilateral facet arthropathy noted without significant canal stenosis. No significant neural foraminal stenosis. There is mild bilateral facet arthropathy at T12-L1 and parh-nq-xiyngcpv bilateral facet arthropathy at T11-T12. Paraspinal/Retroperitoneal: The paravertebral soft tissues appear grossly unremarkable. IMPRESSION: 1. Thoracolumbar scoliotic curvature, as described above, with mild degrees of rotatory retrolisthesis at L2-L3 and L3-L4. 2. Multilevel DDD and spondylosis, as detailed by level above, with multilevel disc bulging, disc herniations and disc-osteophyte complexes, with multilevel bilateral facet arthropathy. Mild central spinal canal stenosis at L3-L4 and multilevel subarticular recess stenosis, as detailed by level above. L5-S1 disc herniation slightly impinges on the traversing right S1 nerve root. 3. Multilevel bilateral predominantly mild and puvd-ys-ujcbgwyh degrees of neural foraminal stenosis, as detailed by level above. Assessment & Plan Assessment & Plan (1) Vertebrogenic low back pain: Code(s): M54.51 - Vertebrogenic low back pain Category: Medical (2) Sacroiliac joint dysfunction of both sides: Code(s): M53.3 - Sacrococcygeal disorders, not elsewhere classified Category: Medical (3) Disc degeneration, lumbar: Code(s): M51.369 - Other intervertebral disc degeneration, lumbar region without mention of lumbar back pain or lower extremity pain Category: Medical (4) Chronic pain syndrome: Code(s): G89.4 - Chronic pain syndrome Category: Medical (5) Lumbar spondylosis: Code(s): M47.816 - Spondylosis without myelopathy or radiculopathy, lumbar region Category: Medical (6) Radiculopathy, lumbar region: Code(s): M54.16 - Radiculopathy, lumbar region Category: Medical (7) Peripheral neuropathy: Code(s): G62.9 - Polyneuropathy, unspecified Category: Medical Plan The patient will proceed with the Nevro SCS implant with sedation and fluoroscopy due to the significant improvement observed during the initial trial, providing 75% relief in neuropathic foot pain and chronic pain syndrome. Extensive discussion on risks and benefits with neuromodulation have been discussed, and precautionary measures, including avoiding physical strain and proper wound care, were emphasized. Patient will continue taking antibiotics as prescribed. All questions and concerns have been answered and patient agreed with the plan. Follow up after SCS implant and sooner as needed. Patient was informed and verbally consented to the use of an ambient scribe for clinic note documentation during this visit. Coding Level of Care Code Est Pt Level 3 (57277) Complex EM visit Add On G2211 Diagnoses Vertebrogenic low back pain M54.51 Sacroiliac joint dysfunction of both sides M53.3 Disc degeneration, lumbar M51.369 Chronic pain syndrome G89.4 Lumbar spondylosis M47.816 Radiculopathy, lumbar region M54.16 Peripheral neuropathy G62.9
[2024-09-15 10:08] VITALS: BP 135/63; PULSE 88; O2SAT 97; BMI 24.8
--- OUTSIDE RECORDS SUMMARY | 2024-09-15 10:20 | XMS_ITS | Encounter Summary ---
Author Organization [facility] Address [address] [place] [address] Care Team Providers Care Prep Manager Name Role Phone Phil Carrillo DO Primary Care Provider [phone] Encounter Details Date Type Department Care Team [...] Info) Description 02/07/2025 8:30 AM EDT Appointment [facility] [address] [place] [address] [phone] 02/28/2025 10:00 AM EST Office Visit [facility] Hematology Oncology [address] [place] [address] [phone] Monica Huynh MD [address] [place] [phone] documented as of this encounter Visit Diagnoses Not on filedocumented in this encounter Care Teams Prep Manager Relationship Specialty Start Date End Date Phil Carrillo DO [address], [place] PCP - General Family Medicine 01/13/22 documented as of this encounter
== END 2024-09-15 10:29 | disposition home or self-care (01) ==
PROVIDERS: PCP Internal Medicine; Visit Provider Nurse Practitioner Family
DX: M54.51 Vertebrogenic low back pain (principal); M53.3 Sacrococcygeal disorders, not elsewhere classified; M51.369 Other intervertebral disc degeneration, lumbar region without mention of lumbar back pain or lower extremity pain; G89.4 Chronic pain syndrome; M47.816 Spondylosis without myelopathy or radiculopathy, lumbar region; M54.16 Radiculopathy, lumbar region; G62.9 Polyneuropathy, unspecified
CPT/HCPCS: 99024

== ENCOUNTER → 2024-09-15 09:53 | Outpatient (BNVA) | payer MEDICARE, SELFPAY | PROVIDERS: PCP Internal Medicine; Visit Provider Nurse Practitioner Family | DX: M54.51 Vertebrogenic low back pain (principal); M53.3 Sacrococcygeal disorders, not elsewhere classified; M51.369 Other intervertebral disc degeneration, lumbar region without mention of lumbar back pain or lower extremity pain; M47.816 Spondylosis without myelopathy or radiculopathy, lumbar region; M54.16 Radiculopathy, lumbar region; G62.9 Polyneuropathy, unspecified; G89.4 Chronic pain syndrome | CPT/HCPCS: 99212 ==

== ENCOUNTER 2024-10-27 05:48 | Day surgery (SDC) | payer MEDICARE, SELFPAY ==
--- OUTSIDE RECORDS SUMMARY | 2024-02-09 08:01 | XMS_ITS | Encounter Summary ---
Author Organization [facility] Address [address] [place] [address] Care Team Providers Care Corrective Therapy Aide Name Role Phone Phil Carrillo DO Primary Care Provider Encounter Details Date Type Department Care Team [...] Info) Description 02/07/2025 8:30 AM EDT Appointment [facility] [address] [place] [address] [phone] 02/28/2025 10:00 AM EST Office Visit [facility] Hematology Oncology [address] [place] [address] [phone] Monica Huynh MD [address] [place] [address] documented as of this encounter Visit Diagnoses Not on filedocumented in this encounter Care Teams Corrective Therapy Aide Relationship Specialty Start Date End Date Phil Carrillo DO [address] [place], [place] PCP - General Family Medicine 01/13/22 documented as of this encounter
[2024-10-25 10:40] VITALS: BMI 24.8
--- NOTE | 2024-10-26 09:20 | HO.ANESPROP2 ---
Documented by User: Bridget Velasco NP 10/26/24 09:23 HPI - Anesthesia Eval Consult details Narrative: 79yo M for Implant of spinal cord stimulator s/p trial 08/2024 with TIVA PMFSH Active Problems Active Problems: All Active Problems Peripheral neuropathy (Acute) Anemia (Acute) Chronic pain syndrome (Acute) Disc degeneration, lumbar (Acute) Sacroiliac joint dysfunction of both sides (Acute) Sacroiliitis (Acute) Vertebrogenic low back pain (Acute) Lumbar stenosis with neurogenic claudication (Acute) Lumbar scoliosis (Acute) Burning sensation of foot (Acute) Numbness of right foot (Acute) Radiculopathy, lumbar region (Acute) Tarsal tunnel syndrome (Acute) Lumbar spondylosis (Acute) Cervical spondylosis (Acute) HTN (hypertension) (Acute) Past Medical History Medical History Tarsal tunnel syndrome Lumbar spondylosis Cervical spondylosis 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 HTN (hypertension) Family History Family History Father Cancer Mother Dementia Family/Other Lung cancer Family history of problems with anesthesia: No Surgical History Surgical History Hx of surgical procedure (09/08/24) H/O colonoscopy H/O hernia repair History of Problems with Anesthesia: No Social History Social History Are you a primary acute care surgeon to a significant other at home: No Do you presently have visiting nurse or other home services: No Alcohol intake: never Patient Tobacco Use Status: Former Tobacco user Have you been hit, kicked, punched, or otherwise hurt by someone within the past year? If so, by whom?: No Are you DNR?: No Advance Directives: No Advance Directives Information Provided: Yes Poor oral hygiene: No Meds Allergies Allergy/AdvReac Type Severity Reaction Status Date / Time No Known Allergies Allergy Verified 10/27/24 06:20 Home Medications ?Medication ?Instructions ?Recorded ?Confirmed ?Last Taken ?Type pantoprazole 40 mg tablet,delayed 40 mg PO DAILY 05/20/21 10/27/24 10/27/24 History release tamsulosin 0.4 mg capsule (Flomax) 0.4 mg PO DAILY 05/20/21 10/27/24 Unknown History lisinopril 10 mg tablet 10 mg PO DAILY 05/17/24 10/27/24 10/27/24 History Exam Height,Weight and Vital Signs: Height 5 ft 11 in Weight 80.739 kg Pertinent Lab Results Pertinent Lab Results: Laboratory Tests 09/08/24 09:51 WBC 7.8 RBC 3.82 L Hgb 11.5 L Hct 33.7 L Plt Count 250 PT 10.6 L INR 0.9 Assessment and Plan Assessment Anesthesia Assessment: Chart Reviewed Final Anesthetic Review Family History of Problems with Anesthesia: No History of Problems with Anesthesia: No Documented by User: Dominique Linares MD 10/27/24 07:31 [facility] Past Medical History Medical History Tarsal tunnel syndrome Lumbar spondylosis Cervical spondylosis 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 HTN (hypertension) Family History Family History Father Cancer Mother Dementia Family/Other Lung cancer Surgical History Surgical History Hx of surgical procedure (09/08/24) H/O colonoscopy H/O hernia repair Social History Social History Are you a primary acute care surgeon to a significant other at home: No Do you presently have visiting nurse or other home services: No Alcohol intake: never Patient Tobacco Use Status: Former Tobacco user Have you been hit, kicked, punched, or otherwise hurt by someone within the past year? If so, by whom?: No Are you DNR?: No Advance Directives: No Advance Directives Information Provided: Yes Poor oral hygiene: No Meds Allergies Allergy/AdvReac Type Severity Reaction Status Date / Time No Known Allergies Allergy Verified 10/27/24 06:20 Home Medications ?Medication ?Instructions ?Recorded ?Confirmed ?Last Taken ?Type pantoprazole 40 mg tablet,delayed 40 mg PO DAILY 05/20/21 10/27/24 10/27/24 History release tamsulosin 0.4 mg capsule (Flomax) 0.4 mg PO DAILY 05/20/21 10/27/24 Unknown History lisinopril 10 mg tablet 10 mg PO DAILY 05/17/24 10/27/24 10/27/24 History Exam Airway Mallampati Class: III TM Dist: >3cm Neck ROM: Limited Loose/Missing/Broken Teeth: No Heart: RRR Lungs: CTA Assessment and Plan Assessment Anesthesia Assessment: Anesthesia Plan Discussed Final Anesthetic Review NPO: Yes ASA Class: II Final Preanesthetic Review: Meds/Allgs Chart Reviewed, Consent Obtained/Reviewed and Anes Risks/Benef Reviewed Patient Risk: Low Procedure Risk: Low Anesthetic Plan Anesthetic Plan: GA Disposition: Standard PACU
[2024-10-27] VITALS (11 sets, daily range): BP systolic 114–149; BP diastolic 46–84; PULSE 60–87; RESP 16–18; TEMP 36.7–36.8; O2SAT 95–99; BMI 24.7
--- NOTE | ~2024-10-27 | FL_ITS ---
EXAMINATION: FL GUIDANCE ONLY HISTORY: spinal cord implant COMPARISON: Comparison is made with the prior examination dated 09/08/2024. TECHNIQUE: Fluoroscopy time: 8 minutes, 6 seconds. Cumulative Dose: 86.28 mGy. DAP: 37.113 mGym2 Images: 2. FINDINGS: Fluoroscopic spot films of the thoracic spine demonstrate scoliosis and a stimulator in place. FL/FL guidance in OR IMPRESSION: Fluoroscopy during procedure. Please see procedure report for additional information. Electronically signed by: Ivan Cutler MD 10/27/2024 10:47 AM EDT
[2024-10-27] MEDS: Lactated Ringers 1,000 ML 100 ML IVCONT (06:12)
--- NOTE | 2024-10-27 06:31 | MHC.SHP ---
Pre-Procedural Eval Section A - 24 Hr Update-Section A only Date of Service: 10/27/24 The patient is an INPATIENT: No Changes since office visit: Yes Patient answered all questions The patient has been examined within 24 hours of the surgical procedure. The History & Physical has been completed within 30 days and I have reviewed it.: No Section B - Complete if H&P > 30 days Chief Complaint: Sacrococcygeal disorders, not elsewhere classified Details of Present Illness: peripheral polyneuropathy Relevant Family History (Specify if Yes): No Relevant Social History: None Present Medications: see Short Stay Collaborative assessment Medical History: Significant History (chemo h/o) History of Previous Operations: No relevant previous surgery Allergies: Allergies Allergy/AdvReac Type Severity Reaction Status Date / Time No Known Allergies Allergy Verified 10/27/24 06:20 Review of Systems Sugical H&P ROS: Negative: Constitution, Cardiovascular, Respiratory, Neurological, Psychiatric, Hem-Onc, Allergic/Immunologic, Gastrointestinal, Genitourinary, Musculoskeletal, Integumentary, Endocrine and Eyes/Ears/Nose/Throat Exam Surgical H&P Exam: Normal: HEENT, Normal: Heart, Normal: Lungs, Normal: Extremities, Normal: Abdomen, Normal: Skin and Normal: Neurological Plan Diagnosis/Plan: Unchanged I have reviewed the history and physical and performed a pertinent physical examination on my patient. No changes have occurred unless specified. Time Spent With Patient Time: Total time managing care of this patient today ____ minutes.
--- NOTE | 2024-10-27 06:48 | ECG_ITS ---
Test Reason : 3 lead arrythmia noted Blood Pressure : */* mmHG Vent. Rate : 78 BPM Atrial Rate : 78 BPM P-R Int : 156 ms QRS Dur : 98 ms QT Int : 408 ms P-R-T Axes : 46 59 15 degrees QTcB Int : 465 ms Sinus rhythm with Premature atrial complexes Otherwise normal ECG No previous ECGs available Referred By: Echo Ayala Electronically Signed By: Guillermo Kowalski
--- NOTE | 2024-10-27 07:10 | PC.NURSE ---
3 lead ekg was showing consistent QRS complex being dropped, stickers changed and this arrhythmia still visible. 12 lead EKG completed as ordered and showed SR with PAC's.
--- NOTE | 2024-10-27 09:58 | PM.OP ---
Brief Operative Note Date of Service: 10/27/24 Pre-op diagnosis: Peripheral polyneuropathy. Spinal stenosis. Chronic pain syndrome. Post-op diagnosis: same Procedure: Implantation of spinal cord stimulator Nevro IQ Implants: Nevro IQ spinal cord stimulator and 2 epidural stimulating leads. Surgeon: Jerald Kwok MD Anesthesia: GETA Was an Burring Wheel Operator used for this Procedure?: No Estimated blood loss (mL): 18 Pathology: none sent Condition: stable Disposition: PACU
--- NOTE | 2024-10-27 10:00 | P.OP_ITS ---
Operative Note Operative Note Date of Service: 10/27/24 Narrative: Implantation of spinal cord stimulator Nevro IQ and epidural stimulating leads. After obtaining informed consent where risks and benefits as well as alternatives were explained to the patient including risk of bleeding, infection, peripheral nerve damage, spinal cord damage and headache, the patient was taken to the operating room. He was positioned supine on the stretcher and after that general endotracheal anesthesia was induced.The patient was transfered prone on the operating table all pressure points were protected. ?Time-out was performed delineating correct site, side, the nature of the pr ocedure, patient's allergy, preoperative antibiotic. ?Preoperatively patient received ? cefazolin 2 g approximately 20 minutes before the incision.? All operating room staff was participating in OR time-out procedure. Patient's entire back was prepped with Chloraprep twice and draped with full body fenestrated laparoscopy drape including Ioban film.? Sterilely draped C-arm was brought over operating field and square picture of the T12- L1-L2 vertebra were obtained on the screen. Projection of the L1 and L2 spinous processes and the space between them was injected with local anesthetic mixture of lidocaine 2% and ropivacaine 0.5% one-to-one. After that strict vertical midline incision was made 6 cm long. The incision was deepened and widened using electrocautery and dull dissection. When prevertebral fascia was reached the overlying tissues were freed from prevertebral fascia. Weitlaner retractor was used to open the wound and perform thorough hemostasis. After that? 10 cm 14 gauge introducer epidural needle was inserted through the fascia in the projection of the pedicle of the L2 vertebra on the right and advanced to T12-L1 epidural interspace.? The advancement of the needle was performed on anterior posterior and lateral views.? Guitar wire and loss of resistance to air technique were used to locate epidural space.? When guitar wire was spread in the epidural fashion, epidural lead was inserted through the needle. After the the epidural lead advanced into the posterior epidural space and advanced in the posterior epidural space until the top electrode was in the projection of the lower border of T7 vertebra in the posterior epidural space. posterior epidural space position was verified on lateral view. After that location of the projection of the left pedicle of L2 vertebra was was found using C-arm. 10 cm 14 gauge introducer epidural needle was inserted through tissue and advanced toward the T12-L1 epidural interspace. The advancement of the needle was performed on anterior posterior and lateral views. Guitar wire and loss of resistance to air technique were used to locate epidural space. When guitar wire was spread to the epidural fashion epidural lead was inserted through the needle and advanced toward the midbody of the T9 vertebra in the posterior epidural space. position of the electrodes in the posterior epidural space was verified in the lateral view. The epidural needles were withdrawn with care taken to keep the epidural leads at their locations. After that anchoring devices were dislodged on the bodies of the epidural leads into the wound each anchoring device was sutured to the prevertebral fascia with two 0-0 Tycron sutures and after sutures were completed each anchoring device was locked with a range until 3 clicks were heard. After that the wound was irrigated and packed with 4x4 soacked in vancomycin containing normal saline. Attention was concentrated on the left upper buttock of the patient where he chose to have his battery implanted. The horizontal incision was made in the projection of 2 cm below the top of the iliac creat. The wound was widened and deepened using electrocautery device. Dull dissection was used to form the pocket for the battery. After that hemostasis was performed using electrocautery. Irrigation was performed using normal saline with vancomycin. After that tunneling device was used to connect 2 wounds and the distal tips of the epidural leads were dislodged into the lateral wound. They were connected to the Nevro battery. the screws on the body of the battery were turned in until 3 clicks were heard. After that 2 anchoring sutures 0-0 Tycron were applied at the most superior lateral and superior medial portion of the wound. The Tycron sutures were inserted into the anchoring orifices of the battery, the battery was dislodged into the wound with leads gathered behind the body of the battery. The ancoring sutures were tied after that. The irrigation was repeated for both wounds using normal saline with vancomycin. After that both wounds were closed using 0-0 Polysorb. After that the edges of the skins were superimposed using 2-0 Polysorb. After that tea were applied. Upon completion of the procedure bacitracin was applied to the level of the wounds and 4x4s were applied to the wounds and fixed to the skin using Medipore tape.. The patient tolerated procedure well. [facility], extubated and transferred stable to PACU.
[2024-10-27] MEDS: oxyCODONE HCl Immed Release 5 MG TABLET PO (10:50)
== END 2024-10-27 12:30 | disposition home or self-care (01) ==
PROVIDERS: PCP Internal Medicine; Visit Provider Anesthesiology
PROC: (CPT 63685; principal; 2024-10-27 07:30)
DX: M53.3 Sacrococcygeal disorders, not elsewhere classified (principal); M48.061 Spinal stenosis, lumbar region without neurogenic claudication; M54.51 Vertebrogenic low back pain; M51.369 Other intervertebral disc degeneration, lumbar region without mention of lumbar back pain or lower extremity pain; G89.4 Chronic pain syndrome; G62.9 Polyneuropathy, unspecified; M47.26 Other spondylosis with radiculopathy, lumbar region; I10 Essential (primary) hypertension; Z92.3 Personal history of irradiation; Z85.46 Personal history of malignant neoplasm of prostate; Z79.899 Other long term (current) drug therapy; Z87.891 Personal history of nicotine dependence
CPT/HCPCS: 63685; 63650 ×2; 93005; C1778; C1787; C1816; C1822; C1889; J0690; J2003; J2371; J2704; J2795; J3010; J3374

== ENCOUNTER → 2024-10-27 05:48 | Outpatient (BNV) | payer MEDICARE, SELFPAY | PROVIDERS: PCP Internal Medicine; Visit Provider Anesthesiology | DX: M48.061 Spinal stenosis, lumbar region without neurogenic claudication (principal); G89.4 Chronic pain syndrome | CPT/HCPCS: 63650; 63685 ==

== ENCOUNTER → 2024-10-27 06:48 | Outpatient (BNV) | payer MEDICARE, SELFPAY | PROVIDERS: PCP Internal Medicine; Visit Provider Internal Medicine Cardiovascular Disease | DX: I49.1 Atrial premature depolarization (principal) | CPT/HCPCS: 93010 ==

== ENCOUNTER 2024-11-02 13:40 | Outpatient (AMB) | payer MEDICARE, SELFPAY ==
--- OUTSIDE RECORDS SUMMARY | 2024-02-09 08:01 | XMS_ITS | Encounter Summary ---
Author Organization [facility] [place] [facility] Address [address] [place] [address] Care Team Providers Care Saddle Cutter Name Role Phone Phil Carrillo DO Primary Care Provider [phone] Encounter Details Date Type Department Care Team (Late st Contact Info) Description 02/09/2024 8:01 AM EDT Hospital Encounter TH HISTORIC ENCOUNTERS EASTERN CONVERSION ONLY Social History Tobacco Use Types Packs/Day Years Used Date Smoking Tobacco: Former Smokeless Tobacco: Never Alcohol Use Standard Drinks/Week Comments Yes 0 (1 standard drink = 0.6 oz pur e alcohol) Sex and Gender Information Value Date Recorded Sex Assigned at Not on file Legal Sex Male 12:12 AM EST Gender Identity Not on file Sexual Orientation Not on file documented as of this encounter Last Filed Vital Signs Vital Sign Reading Time Taken Comments Blood Pressure - - Pulse - - Temperature - - Respiratory Rate - - Oxygen Saturation - - Inhaled Oxygen Concentration - - Weight 77.1 kg (170 lb) 07/19/2023 10:46 AM EDT Height 180.3 cm (5' 11 ) 07/19/2023 10:46 AM EDT Body Mass Index 23.71 07/19/2023 10:46 AM EDT documented in this encounter Progress Notes * Historical, Notes Results - 02/09/2024 8:00 AM EDT Arrived amb for gerardo johnson is feeling well. Has hot flashes from this medicine, worse after drinking coffee. Wants to continue on this medication for now. Has /fu wit Dr. Macias in [address] warmed and administered into RIGHT buttock, tolerated with some burning. Next appt scheduled for 6 months. Left amb, stable at D/C. documented in this encounter Plan of Treatment Upcoming Encounters Date Type Department Care Team (Late st Contact Info) Description 02/07/2025 8:[address] [facility] [address] [place] [address] [phone] 02/28/2025 10:00 AM EST Office Visit [facility] Hematology Oncology [address] [place] [address] [phone] Monica Huynh MD [address] [place] [address] documented as of this encounter Visit Diagnoses Not on filedocumented in this encounter Care Teams Saddle Cutter Relationship Specialty Start Date End Date Phil Carrillo DO [address] [place], [place] PCP - General Family Medicine 01/13/22 documented as of this encounter
[2024-11-02 13:49] VITALS: BP 121/62; PULSE 95; RESP 20; O2SAT 93; BMI 25.1
--- NOTE | 2024-11-02 13:49 | A.OFFVIS_ITS ---
Vital Signs 11/02/24 13:49 Height 6 ft Weight 185 lb BMI 25.1 BP 121/62 Blood Pressure Location Lt brachial Position Sitting Respiration 20 Pulse 95 Pulse Source Pulse Oximeter Pulse Oximetry (%) 93 Oxygen Delivery Method Room Air Intake Visit Reasons: S/p Nevro SCS Implant 10/27/24 Clip Loading Machine Feeder Required: No Allergies No Known Allergies Allergy (Verified 11/02/24 13:50) HPI Comments Details: Miguel A is in my office today for the follow-up after implantation of Nevro spinal cord stimulator. He received procedures 7 days ago. There is minimal redness and minimal swelling in the areas of the wound after removal of the dressing. There is no pathological discharge no tenderness on palpation. The wound was washed with ChloraPrep and sterile dressings were applied. He complains on feet swelling after the procedure. Homans signs is positive on the left as well as tenderness on squeezing the calf muscle. I will send this patient for stat Doppler sonography to assess the possibility of deep vein thrombosis and need for DVT prophylaxis. I told him to take aspirin today and tomorrow 81 mg q.h.s. with food. Swelling of the lower extremities maybe results of cardiac insufficiency versus kidney problems. I told the patient if on sonography there will be no clots in the feet found needs to see his primary care physician as soon as possible or go to urgent care to address the issue of lower extremity swelling. Past Procedures: 09/08/24: Lumbar Nevro SCS trial->75% pain relief PRIOR Dr. Kwok 07/20/24: Miguel A is back in my office after diagnostic bilateral sacroiliac joint injection. Unfortunately the injection did not help his pain. He reports pain aggravation after the procedure. I re-examined the patient and the only idea I could come up with was diagnostic medial branch block of the lower lumbar joints. However the patient was not very eager to go for yet another injection. He asked me for alternatives. I decided to send him for physical therapy. He reports that in the past his lower back pain was minimally helped with physical therapy. I told him to lie more efforts and exercise more frequently and then physical therapy will be more effective for his pain. As of his pain in bilateral feet severe neuropathic pain in burning and sharp scraping sensation secondary to chemotherapy to treatment for prostate cancer he agreed to go for a trial of Nevro SCS. I will schedule him for the procedure a fter he will pass the psychological evaluation. Advantage point brochure was given to the patient. 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 HTN (hypertension) Surgical History Hx of surgical procedure (09/08/24) H/O colonoscopy H/O hernia repair Family History Father Cancer Mother Dementia Family/Other Lung cancer Social History Are you a primary manager home healthcare to a significant other at home: No Do you presently have visiting nurse or other home services: No Alcohol intake: never Patient Tobacco Use Status: Former Tobacco user Review of Systems Const All systems reviewed & are unremarkable except as noted in HPI and below ENT Reports Normal hearing present Neuro Reports Normal hearing present, Denies Abnormal speech present, Reports confusion and Denies Sensory deficit (Neuro) Psych Reports confusion Physical Exam Vital Signs: Last Vital Signs Pulse 95 11/02/24 13:49 Resp 20 11/02/24 13:49 BP 121/62 11/02/24 13:49 Pulse Ox 93 11/02/24 13:49 Oxygen Delivery Method Room Air 11/02/24 13:49 BMI result Body Mass Index 25.1 Const General: no acute distress, alert, awake, Physically active and confusion Nutritional Appearance: average body habitus Orientation/consciousness: patient oriented x3 and confusion Eyes General: appearance normal, both eyes and all related structures Pupils: Equal, round and reactive pupils present EOM: EOMs intact bilaterally Neck Neck: Yes full ROM Chest Chest palpation & inspection: normal inspection of the chest Resp Effort & Inspection: normal respiratory effort, able to speak in complete sentences, normal respiratory pattern, no audible wheezes and no cough Cardio Jugular venous distension: no JVD GI Inspection: Yes normal to inspection Back/Spine/Pelvis Other: Flexing forward and flexing backwards both aggravate his pain. Loading test is negative bilaterally. Nash test is negative bilaterally. However pelvic compression test pelvic distraction test and thigh thrust test are positive bilaterally for sacroiliac joint problem. SLR is negative bilaterally. Lassegue test is negative bilaterally. There is tenderness on palpation in bilateral sacroiliac joint projections. There is tenderness on palpation in the projection of paraspinal spinal region lumbar spine but this tenderness is less than sacroiliac joint tenderness on palpation. Neuro General: patient oriented x3, gait normal and confusion Cranial nerves: Yes CN's II-XII intact bilaterally, Yes Equal, round and reactive pupils present, Yes Normal hearing present and Yes Ability to bilaterally elevate shoulders present Speech: No Abnormal speech present Gait exam (Neuro): Normal gait present Motor exam (neuro): 5/5 motor strength present throughout Sensory Exam: No Sensory deficit (Neuro) Extrem Other: Homans signs appears to be positive on the left and equivocal on the right. The calf squeezing test is also positive on the left. General: No pedal edema Psych Speech and movement: Normal speech and movement present Affect: normal affect Attitude: cooperative Thought process: Normal thought process present Thought content: Normal thought content present Insight: Good insight present (Psych) Judgement: Good judgement present (Psych) Assessment & Plan Assessment & Plan (1) DVT (deep venous thrombosis): Code(s): I82.409 - Acute embolism and thrombosis of unspecified deep veins of unspecified lower extremity Category: Medical (2) Vertebrogenic low back pain: Code(s): M54.51 - Vertebrogenic low back pain Category: Medical (3) Sacroiliac joint dysfunction of both sides: Code(s): M53.3 - Sacrococcygeal disorders, not elsewhere classified Category: Medical (4) Disc degeneration, lumbar: Code(s): M51.369 - Other intervertebral disc degeneration, lumbar region without mention of lumbar back pain or lower extremity pain Category: Medical (5) Chronic pain syndrome: Code(s): G89.4 - Chronic pain syndrome Category: Medical (6) Lumbar spondylosis: Code(s): M47.816 - Spondylosis without myelopathy or radiculopathy, lumbar region Category: Medical (7) Radiculopathy, lumbar region: Code(s): M54.16 - Radiculopathy, lumbar region Category: Medical (8) Peripheral neuropathy: Code(s): G62.9 - Polyneuropathy, unspecified Category: Medical Plan Miguel A reports no help with stimulation from the Nevro SCS at this time however very pertinent at this time is swelling of bilateral lower extremities. I am sending him for stat venous duplex. If venous duplex is negative he needs to see primary care physician as soon as possible. I told him to take aspirin 81 mg OTC tonight and tomorrow night to reduce blood clotting ability and possibly prevent PE. I also will contact [facility] novelties sales representative to discuss results of the stimulation at this time. I will see this patient otherwise in 1 week for staple removals. He was explained to continue wearing abdominal binder in the area of the battery. Activities limitations also were explained to the patient. Orders: Orders 2 US venous duplex LE LT Today I82.409 - Acute embolism and thrombosis of unspecified deep veins of unspecified lower extremity US venous duplex LE RT Today I82.409 - Acute embolism and thrombosis of unspecified deep veins of unspecified lower extremity Patient Instructions: I here by testify that I spent 32 minutes in conversation with this patient as well as planning his care and organizing this note. Coding Level of Care Code Est Pt Level 4 (25909) Diagnoses DVT (deep venous thrombosis) I82.409 Vertebrogenic low back pain M54.51 Sacroiliac joint dysfunction of both sides M53.3 Disc degeneration, lumbar M51.369 Chronic pain syndrome G89.4 Lumbar spondylosis M47.816 Radiculopathy, lumbar region M54.16 Peripheral neuropathy G62.9
--- OUTSIDE RECORDS SUMMARY | 2024-11-02 14:21 | XMS_ITS | Clinical Summary ---
Author Organization [facility] Address [address] [place] [address] Care Team Providers Care Computer Programmer Analyst Name Role Phone Phil Carrillo MD Primary Care Provider [phone] Allergies No known active allergies Medications Medication [...] 67 02/09/2024 8:12 AM EDT Temperature 36.7 C (98 F) 02/09/2024 8:12 AM EDT Respiratory Rate 20 [...] 07/01/2020, Additional history exists Influenza Vaccine (#1) 2024 , 01/12/2022, 01/24/2021, Additional history exists Pneumococcal Vaccine Completed 12/19/2017, 12/09/2016, 01/16/2015 RSV Adult > 60+ Yrs or Completed 02/06/2023 Hepatitis B Vaccines Aged Out No long er eligible based on patient's age to complete this topic RSV Ped < 20 months Aged Out No longe r eligible based on patient's age to complete this topic Care Teams Computer Programmer Analyst Relationship Specialty Start Date End Date Phil Carrillo MD [address] [place] [address] PCP - General Family Medicine 01/13/22
== END 2024-11-02 14:13 | disposition home or self-care (01) ==
LOC: HO.PMC 13:41
PROVIDERS: PCP Internal Medicine; Visit Provider Anesthesiology
DX: I82.409 Acute embolism and thrombosis of unspecified deep veins of unspecified lower extremity (principal); M54.51 Vertebrogenic low back pain; M53.3 Sacrococcygeal disorders, not elsewhere classified; M51.369 Other intervertebral disc degeneration, lumbar region without mention of lumbar back pain or lower extremity pain; G89.4 Chronic pain syndrome; M47.816 Spondylosis without myelopathy or radiculopathy, lumbar region; M54.16 Radiculopathy, lumbar region; G62.9 Polyneuropathy, unspecified
CPT/HCPCS: 99024

== ENCOUNTER → 2024-11-02 13:40 | Outpatient (BNVA) | payer MEDICARE, SELFPAY | PROVIDERS: PCP Internal Medicine; Visit Provider Anesthesiology | DX: M54.51 Vertebrogenic low back pain (principal); M53.3 Sacrococcygeal disorders, not elsewhere classified; M51.369 Other intervertebral disc degeneration, lumbar region without mention of lumbar back pain or lower extremity pain; M47.816 Spondylosis without myelopathy or radiculopathy, lumbar region; M54.16 Radiculopathy, lumbar region; G62.9 Polyneuropathy, unspecified; I82.409 Acute embolism and thrombosis of unspecified deep veins of unspecified lower extremity; G89.4 Chronic pain syndrome | CPT/HCPCS: 99212 ==

== ENCOUNTER 2024-11-03 14:00 | Outpatient (REF) | payer MEDICARE, SELFPAY ==
--- OUTSIDE RECORDS SUMMARY | 2024-02-09 08:01 | XMS_ITS | Encounter Summary ---
Author Organization [facility] Address [address] [place] [address] Care Team Providers Care Small Business Representative Name Role Phone Phil Carrillo DO Primary Care Provider [phone] Encounter Details Date Type Department Care Team [...] Info) Description 02/07/2025 8:30 AM EDT Appointment [facility] [address] [place] [phone] 02/28/2025 10:00 AM EST Office Visit [facility] Hematology Oncology [address] [place] [address] [phone] Monica Huynh MD [address] [place] [address] documented as of this encounter Visit Diagnoses Not on filedocumented in this encounter Care Teams Small Business Representative Relationship Specialty Start Date End Date Phil Carrillo DO [address] [place], [place] PCP - General Family Medicine 01/13/22 documented as of this encounter
--- NOTE | ~2024-11-03 | US_ITS ---
EXAMINATION: US LOWER EXTREMITY VEINS BILATERAL HISTORY: I82.409 - Acute embolism and thrombosis of unspecified deep veins of COMPARISON: There are no prior studies available for comparison. TECHNIQUE: Duplex and color Doppler sonographic examination of the deep venous system of the bilateral lower extremities was performed. FINDINGS: The right common femoral, superficial femoral, and popliteal veins are patent demonstrating normal compressibility, spontaneous flow, and augmentation. There is a normal color and spectral Doppler waveform appearance of the visualized deep venous system above the knee. The posterior tibial and peroneal veins are patent. The left common femoral, superficial femoral, and popliteal veins are patent demonstrating normal compressibility, spontaneous flow, and augmentation. There is a normal color and spectral Doppler waveform appearance of the visualized deep venous system above the knee. The posterior tibial and peroneal veins are patent. Incidental note is made of a fluid collection in the left proximal to mid calf measuring 11.2 x 2.5 x 4.8 cm. US/US venous duplex LE BI IMPRESSION: 1. No evidence of acute DVT in the bilateral lower extremities. 2. 11.2 x 2.5 x 4.8 cm fluid collection in the left proximal to mid calf. Electronically signed by: Ivan Culter MD 11/03/2024 03:06 PM EDT
--- OUTSIDE RECORDS SUMMARY | 2024-11-03 14:28 | XMS_ITS | Clinical Summary ---
Author Organization [facility] Address [address] [place] [address] Care Team Providers Care Watch Assembler Name Role Phone Phil Carrillo MD Primary Care Provider [phone] Allergies No known active allergies Medications Medication [...] age to complete this topic Care Teams Watch Assembler Relationship Specialty Start Date End Date Phil Carrillo MD [address] [place] [address] PCP - General Family Medicine 01/13/22
== END 2024-11-03 14:01 | disposition home or self-care (01) ==
LOC: HO.US 14:00
PROVIDERS: PCP Internal Medicine; Visit Provider Anesthesiology
DX: Z86.718 Personal history of other venous thrombosis and embolism (principal)
CPT/HCPCS: 93970

== ENCOUNTER → 2024-11-03 14:27 | Outpatient (BNV) | payer MEDICARE, SELFPAY | PROVIDERS: PCP Internal Medicine; Visit Provider Radiology Diagnostic Radiology | DX: R22.42 Localized swelling, mass and lump, left lower limb (principal) | CPT/HCPCS: 93970 ==

== ENCOUNTER 2024-11-09 13:35 | Outpatient (AMB) | payer MEDICARE, SELFPAY ==
--- OUTSIDE RECORDS SUMMARY | 2024-02-09 08:01 | XMS_ITS | Encounter Summary ---
Author Organization [facility] Address [address] [place] [address] Care Team Providers Care Choir Accompanist Name Role Phone Phil Carrillo DO Primary Care Provider [phone] Encounter Details Date Type Department Care Team [...] Info) Description 02/07/2025 8:30 AM EDT Appointment [facility] [address] [place] [phone] 02/28/2025 10:00 AM EST Office Visit [facility] Hematology Oncology [address] [place] [phone] Monica Huynh MD [address] [place] [address] documented as of this encounter Visit Diagnoses Not on filedocumented in this encounter Care Teams Choir Accompanist Relationship Specialty Start Date End Date Phil Carrillo DO [address] [place], [place] PCP - General Family Medicine 01/13/22 documented as of this encounter
--- OUTSIDE RECORDS SUMMARY | 2024-11-09 13:41 | XMS_ITS | Clinical Summary ---
Author Organization [facility] Address [address] [place] [address] Care Team Providers Care Life Skills Trainer Name Role Phone Phil Carrillo MD Primary Care Provider [phone] Allergies No known active allergies Medications Medication [...] age to complete this topic Care Teams Life Skills Trainer Relationship Specialty Start Date End Date Phil Carrillo MD [address] [place] [address] PCP - General Family Medicine 01/13/22
[2024-11-09 13:51] VITALS: BP 141/61; PULSE 75; RESP 20; O2SAT 98
--- NOTE | 2024-11-09 13:51 | MHC.OFFVIS ---
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 He received procedures 13 days ago. The dressing was changed today there is no swelling no pathological discharge no tenderness on palpation no discoloration no redness. When I removed tea from the midline incision there were small gaps in between the loops of the incision. I decided to keep every other staple in place. They will be removed in 1 week. The battery incision completely healed and tea were removed. The wounds were washed with ChloraPrep twice before and after removal of the tea and sterile dressings were applied. Hygiene limitations were explained to the patient. Patient reports good pain relief. Nevro artist's representative is working today to adjust the stimulation for the patient. Lower extremity swelling was worked up, we found no evidence of DVT. There is a fluid collection in 1 of his calf. He will address this issue to primary care physician he already has an appointment there. Past Procedures: 09/08/24: Lumbar Nevro SCS trial->75% pain relief PRIOR Dr. Kwok 07/20/24: Miguel A is back in my office after diagnostic bilateral sacroiliac joint injection. Unfortunately the injection did not help his pain. He reports pain aggravation after the procedure. I re-examined the patient and the only idea I could come up with was diagnostic medial branch block of the lower lumbar joints. However the patient was not very eager to go for yet another injection. He asked me for alternatives. I decided to send him for physical therapy. He reports that in the past his lower back pain was minimally helped with physical therapy. I told him to lie more efforts and exercise more frequently and then physical therapy will be more effective for his pain. As of his pain in bilateral feet severe neuropathic pain in burning and sharp scraping sensation secondary to chemotherapy to treatment for prostate cancer he agreed to go for a trial of Nevro SCS. I will schedule him for the procedure after he will pass the psychological evaluation. Advantage point brochure was given to the patient. 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 HTN (hypertension) Surgical History Hx of surgical procedure (09/08/24) H/O colonoscopy H/O hernia repair Family History Father Cancer Mother Dementia Family/Other Lung cancer Social History Are you a primary intensive care ambulance paramedic to a significant other at home: No Do you presently have visiting nurse or other home services: No Alcohol intake: never Patient Tobacco Use Status: Former Tobacco user Review of Systems Const All systems reviewed & are unremarkable except as noted in HPI and below ENT Reports Normal hearing present Neuro Reports Normal hearing present, Denies Abnormal speech present, Reports confusion and Denies Sensory deficit (Neuro) Psych Reports confusion Physical Exam Vital Signs: Last Vital Signs Pulse 75 11/09/24 13:51 Resp 20 11/09/24 13:51 BP 141/61 H 11/09/24 13:51 Pulse Ox 98 11/09/24 13:51 Oxygen Delivery Method Room Air 11/09/24 13:51 Const General: no acute distress, alert, awake, Physically active and confusion Nutritional Appearance: average body habitus Orientation/consciousness: patient oriented x3 and confusion Eyes General: appearance normal, both eyes and all related structures Pupils: Equal, round and reactive pupils present EOM: EOMs intact bilaterally Neck Neck: Yes full ROM Chest Chest palpation & inspection: normal inspection of the chest Resp Effort & Inspection: normal respiratory effort, able to speak in complete sentences, normal respiratory pattern, no audible wheezes and no cough Cardio Jugular venous distension: no JVD GI Inspection: Yes normal to inspection Back/Spine/Pelvis Other: Flexing forward and flexing backwards both aggravate his pain. Loading test is negative bilaterally. Nash test is negative bilaterally. However pelvic compression test pelvic distraction test and thigh thrust test are positive bilaterally for sacroiliac joint problem. SLR is negative bilaterally. Lassegue test is negative bilaterally. There is tenderness on palpation in bilateral sacroiliac joint projections. There is tenderness on palpation in the projection of paraspinal spinal region lumbar spine but this tenderness is less than sacroiliac joint tenderness on palpation. Neuro General: patient oriented x3, gait normal and confusion Cranial nerves: Yes CN's II-XII intact bilaterally, Yes Equal, round and reactive pupils present, Yes Normal hearing present and Yes Ability to bilaterally elevate shoulders present Speech: No Abnormal speech present Gait exam (Neuro): Normal gait present Motor exam (neuro): 5/5 motor strength present throughout Sensory Exam: No Sensory deficit (Neuro) Extrem Other: Homans signs appears to be positive on the left and equivocal on the right. The calf squeezing test is also positive on the left. General: No pedal edema Psych Speech and movement: Normal speech and movement present Affect: normal affect Attitude: cooperative Thought process: Normal thought process present Thought content: Normal thought content present Insight: Good insight present (Psych) Judgement: Good judgement present (Psych) Assessment & Plan Assessment & Plan (1) DVT (deep venous thrombosis): Code(s): I82.409 - Acute embolism and thrombosis of unspecified deep veins of unspecified lower extremity Category: Medical (2) Vertebrogenic low back pain: Code(s): M54.51 - Vertebrogenic low back pain Category: Medical (3) Sacroiliac joint dysfunction of both sides: Code(s): M53.3 - Sacrococcygeal disorders, not elsewhere classified Category: Medical (4) Disc degeneration, lumbar: Code(s): M51.369 - Other intervertebral disc degeneration, lumbar region without mention of lumbar back pain or lower extremity pain Category: Medical (5) Chronic pain syndrome: Code(s): G89.4 - Chronic pain syndrome Category: Medical (6) Lumbar spondylosis: Code(s): M47.816 - Spondylosis without myelopathy or radiculopathy, lumbar region Category: Medical (7) Radiculopathy, lumbar region: Code(s): M54.16 - Radiculopathy, lumbar region Category: Medical (8) Peripheral neuropathy: Code(s): G62.9 - Polyneuropathy, unspecified Category: Medical Plan Miguel A reports good help with stimulation from the Nevro SCS Nevro artist's representative is working with the patient today to adjust the stimulation. Staple removal see as above. The patient has minimal gaps in midline incision. I left every other staple in. It will be removed in 1 week. Appointment with PCP scheduled to assess fluid collection in 1 of his calves, as well as to treat edema of bilateral lower extremities. Hygiene limitations were explained to the patient. He would need to continue to wear abdominal binder for another 6 weeks. Coding Level of Care Code Est Pt Level 3 (20286) Diagnoses DVT (deep venous thrombosis) I82.409 Vertebrogenic low back pain M54.51 Sacroiliac joint dysfunction of both sides M53.3 Disc degeneration, lumbar M51.369 Chronic pain syndrome G89.4 Lumbar spondylosis M47.816 Radiculopathy, lumbar region M54.16 Peripheral neuropathy G62.9
== END 2024-11-09 14:47 | disposition home or self-care (01) ==
LOC: HO.PMC 13:36
PROVIDERS: PCP Internal Medicine; Visit Provider Anesthesiology
DX: I82.409 Acute embolism and thrombosis of unspecified deep veins of unspecified lower extremity (principal); M54.51 Vertebrogenic low back pain; M53.3 Sacrococcygeal disorders, not elsewhere classified; M51.369 Other intervertebral disc degeneration, lumbar region without mention of lumbar back pain or lower extremity pain; G89.4 Chronic pain syndrome; M47.816 Spondylosis without myelopathy or radiculopathy, lumbar region; M54.16 Radiculopathy, lumbar region; G62.9 Polyneuropathy, unspecified
CPT/HCPCS: 99213

== ENCOUNTER → 2024-11-09 13:35 | Outpatient (BNVA) | payer MEDICARE, SELFPAY | PROVIDERS: PCP Internal Medicine; Visit Provider Anesthesiology | DX: M54.51 Vertebrogenic low back pain (principal); M53.3 Sacrococcygeal disorders, not elsewhere classified; M51.369 Other intervertebral disc degeneration, lumbar region without mention of lumbar back pain or lower extremity pain; G89.4 Chronic pain syndrome; M47.816 Spondylosis without myelopathy or radiculopathy, lumbar region; M54.16 Radiculopathy, lumbar region; G62.9 Polyneuropathy, unspecified; R60.0 Localized edema; I82.403 Acute embolism and thrombosis of unspecified deep veins of lower extremity, bilateral | CPT/HCPCS: 99212 ==

== ENCOUNTER 2024-11-16 09:42 | Outpatient (AMB) | payer MEDICARE, SELFPAY ==
--- OUTSIDE RECORDS SUMMARY | 2024-02-09 08:01 | XMS_ITS | Encounter Summary ---
Author Organization [facility] Address [address] [place] [address] Care Team Providers Care Experimental Worker Name Role Phone Phil Carrillo DO Primary Care Provider [phone] Encounter Details Date Type Department Care Team [...] EDT Appointment [facility] [address] [place] [address] [phone] 02/28/2025 10:00 AM EST Office Visit [facility] Hematology Oncology [address] [place] [phone] Monica Huynh MD [address] [place] [address] documented as of this encounter Visit Diagnoses Not on filedocumented in this encounter Care Teams Experimental Worker Relationship Specialty Start Date End Date Phil Carrillo DO [address] [place], [place] PCP - General Family Medicine 01/13/22 documented as of this encounter
[2024-11-16 09:50] VITALS: BP 133/78; PULSE 103; O2SAT 98; BMI 24.5
--- NOTE | 2024-11-16 09:50 | MHC.OFFVIS ---
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 The procedure was performed on October 27, 2024, by Dr. Kwok, and the patient is now at his two-week postoperative appointment. The patient reports that some naveen were left in place at the midline incision, which are scheduled for removal today. The patient experiences neuropathic pain primarily in the feet, for which the spinal cord stimulator was implanted. The patient reports that the back pain remains unchanged, while the leg pain is intermittent. Jacob Parsons has been adjusting the stimulation settings, and the patient is currently on minimal settings, with plans to increase to full dosage after naveen removal. The patient has a history of peripheral edema, which has improved with the use of diuretics as recommended by his primary care physician. The patient denies any history of blood clots, and recent testing confirmed the absence of thrombosis. The dressings were changed today in the office. Dressings were removed. The two incisional wounds were examined today. They are healing without complications. The wounds are clean, no pathological discharge, no redness, no swelling, no local temperature or tenderness on palpation. The wounds were washed with ChloraPrep and naveen were removed today. The wounds are clean, no pathological discharge, no redness, no swelling, no local temperature, no tenderness on palpation. The wounds were washed again with ChloraPrep, Steri-strips and bacitracin ointment with dry sterile dressings were applied. PRIOR 11/09/24 Dr. Kwok: Miguel A is in my office today for the follow-up after implantation of Nevro spinal cord stimulator. He received procedures 13 days ago. The dressing was changed today there is no swelling no pathological discharge no tenderness on palpation no discoloration no redness. When I removed naveen from the midline incision there were small gaps in between the loops of the incision. I decided to keep every other staple in place. They will be removed in 1 week. The battery incision completely healed and naveen were removed. The wounds were washed with ChloraPrep twice before and after removal of the naveen and sterile dressings were applied. Hygiene limitations were explained to the patient. Patient reports good pain relief. Nevro new accounts representative is working today to adjust the stimulation for the patient. Lower extremity swelling was worked up, we found no evidence of DVT. There is a fluid collection in 1 of his calf. He will address this issue to primary care physician he already has an appointment there. Past Procedures: 09/08/24: Lumbar Nevro SCS trial->75% pain relief PRIOR Dr. Kwok 07/20/24: Miguel A is back in my office after diagnostic bilateral sacroiliac joint injection. Unfortunately the injection did not help his pain. He reports pain aggravation after the procedure. I re-examined the patient and the only idea I could come up with was diagnostic medial branch block of the lower lumbar joints. However the patient was not very eager to go for yet another injection. He asked me for alternatives. I decided to send him for physical therapy. He reports that in the past his lower back pain was minimally helped with physical therapy. I told him to lie more efforts and exercise more frequently and then physical therapy will be more effective for his pain. As of his pain in bilateral feet severe neuropathic pain in burning and sharp scraping sensation secondary to chemotherapy to treatment for prostate cancer he agreed to go for a trial of Nevro SCS. I will schedule him for the procedure after he will pass the psychological evaluation. Advant[employer] point brochure was given to the patient. 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 HTN (hypertension) Surgical History Hx of surgical procedure (09/08/24) H/O colonoscopy H/O hernia repair Family History Father Cancer Mother Dementia Family/Other Lung cancer Social History Are you a primary medicare insurance specialist to a significant other at home: No Do you presently have visiting nurse or other home services: No Alcohol intake: never Patient Tobacco Use Status: Former Tobacco user Review of Systems Const All systems reviewed & are unremarkable except as noted in HPI and below Physical Exam Vital Signs: Last Vital Signs Pulse 103 H 11/16/24 09:50 BP 133/78 11/16/24 09:50 Pulse Ox 98 11/16/24 09:50 Oxygen Delivery Method Room Air 11/16/24 09:50 BMI result Body Mass Index 24.5 General: Appears afebrile. Alert and oriented. Mood and affect appropriate. Follows and participates in conversation appropriately. Respiratory effort is unlabored. No cough. Able to transition from sit to stand unassisted. Ambulates with bilaterally normal heel strike and toe off. General: Yes no CVA tenderness Back/Spine/Pelvis Other: Back and left upper buttock dressings were examined and changed in the office today. Naveen removed. Patient is wearing binder. Back: no CVA tenderness Cervical Spine: cervical ROM normal, No cervical muscular tenderness and No Cervical spine tenderness Thoracic/Lumbar Spine: thoracic and lumbar spine normal to inspection, Thoracic/lumbar spine scar(s), No Lasegue's sign negative, No straight leg raise negative bilaterally, thoraco-lumbar ROM limited, No thoracic spinal tenderness and No lumbar spinal tenderness Sacroiliac joints: bilaterally tender to palpation Results Reviewed Results Reviewed: MR LUMBAR SPINE WITHOUT CONTRAST CLINICAL INFORMATION: 76-year-old with self-reported neuropathy in both feet, more on right. Self-reported bilateral leg pain. Tarsal tunnel syndrome, right foot numbness, radiculopathy. COMPARISON: None TECHNIQUE: MRI of the lumbar spine was obtained using routine sequences without contrast. FINDINGS: Coronal Alignment: There is S-shaped thoracolumbar scoliotic curvature, minimally convex to the right at L4-L5 and moderately convex to the left at L1-L2. Sagittal Alignment: There is trace rotatory retrolisthesis at L2-L3 asymmetric to the left. Mild rotatory retrolisthesis at L3-L4 asymmetric to the left. Lumbar lordotic curvature is maintained in the sagittal plane. Lumbosacral Junction: Normal. Five nonrib-bearing lumbar-type vertebral bodies. Vertebral Bodies: Vertebral body heights are well maintained. Disc Spaces and Endplates: Mild disc space height loss at L5-S1 with disc desiccation. Cnidfskv-cr-wsohbj disc space height loss asymmetric to the left at L4-L5, with intradiscal degenerative signal changes, tiny Schmorl's nodes and ooru-vh-lwkkbknf spondylosis asymmetric to the left. Mild disc volume loss at L3-L4 with disc desiccation and tiny Schmorl's nodes with mild spondylosis asymmetric to the right. Nzwpdzld-mu-kmaqlc disc space height loss asymmetric to the right, with disc desiccation, Schmorl's nodes and moderate spondylosis asymmetric to the right. Spinal Canal: No abnormal developmental findings. Bone Marrow: No significant marrow-replacing process or bone marrow edema. Type II degenerative marrow signal changes noted along the endplates from L2-L3 to L5-S1 inclusive. Conus Medullaris: Terminates at L1-L2. Morphology and signal is normal. Intradural Nerve Roots: Within normal limits. L5-S1: There is a central to right paramedian disc herniation which abuts the traversing right S1 nerve root and ventral thecal sac. There is minor right and mild left-sided facet arthrosis with mild left-sided neural foraminal narrowing without exiting neural impingement. No significant spinal canal stenosis. L4-L5: Minor concentric disc bulging is noted with slight flattening of the ventral dural sac asymmetric to the left. There is predominantly left-sided mild ligamentum flavum thickening with ppzh-ga-ynkzhwqb left-sided facet arthropathy and gyfu-lg-bjgqnwcq left subarticular recess stenosis slightly encroaching on the origin of the left S1 nerve root sleeve without evidence central spinal canal stenosis. There is xkoh-ag-datzwcig left-sided neural foraminal stenosis without exiting neural impingement. L3-L4: There is disc bulging and central disc-osteophyte complex with a superimposed left foraminal disc protrusion, and there is dcqz-ql-nfzlxpft bilateral facet arthropathy with ligamentum flavum thickening. Prominent dorsal epidural fat pad noted with mild central spinal canal stenosis. There is xqsoqgfs-gy-yhnjus left subarticular and lateral recess stenosis. There is moderate left-sided and mild right-sided neural foraminal stenosis without definite exiting neural impingement. L2-L3: Posterolateral disc-osteophyte complex asymmetric to the right with meebauhg-yg-tfscda right-sided and nhgz-ur-ibcuhfse left-sided facet arthropathy. Mild flattening of the ventral dural sac is noted without significant central spinal canal stenosis. There is cazm-rn-sazhuvwx right and mild left subarticular zone and lateral recess stenosis with possible encroachment on the intradural segment of the traversing right L3 nerve root. There is mrju-sh-llqnxhxp right-sided neural foraminal stenosis, with right lateral disc-osteophyte complex contacting the extraforaminal right L2 nerve root. L1-L2: No significant disc bulge or herniation. Hfmc-zb-vwjqguww bilateral facet arthropathy noted without significant canal stenosis. No significant neural foraminal stenosis. There is mild bilateral facet arthropathy at T12-L1 and xepx-zx-hxfsnokj bilateral facet arthropathy at T11-T12. Paraspinal/Retroperitoneal: The paravertebral soft tissues appear grossly unremarkable. IMPRESSION: 1. Thoracolumbar scoliotic curvature, as described above, with mild degrees of rotatory retrolisthesis at L2-L3 and L3-L4. 2. Multilevel DDD and spondylosis, as detailed by level above, with multilevel disc bulging, disc herniations and disc-osteophyte complexes, with multilevel bilateral facet arthropathy. Mild central spinal canal stenosis at L3-L4 and multilevel subarticular recess stenosis, as detailed by level above. L5-S1 disc herniation slightly impinges on the traversing right S1 nerve root. 3. Multilevel bilateral predominantly mild and njan-qd-zfwxjosl degrees of neural foraminal stenosis, as detailed by level above. Assessment & Plan Assessment & Plan (1) Vertebrogenic low back pain: Code(s): M54.51 - Vertebrogenic low back pain Category: Medical (2) Sacroiliac joint dysfunction of both sides: Code(s): M53.3 - Sacrococcygeal disorders, not elsewhere classified Category: Medical (3) Disc degeneration, lumbar: Code(s): M51.369 - Other intervertebral disc degeneration, lumbar region without mention of lumbar back pain or lower extremity pain Category: Medical (4) Chronic pain syndrome: Code(s): G89.4 - Chronic pain syndrome Category: Medical (5) Lumbar spondylosis: Code(s): M47.816 - Spondylosis without myelopathy or radiculopathy, lumbar region Category: Medical (6) Radiculopathy, lumbar region: Code(s): M54.16 - Radiculopathy, lumbar region Category: Medical (7) Peripheral neuropathy: Code(s): G62.9 - Polyneuropathy, unspecified Category: Medical Plan The remaining naveen were removed from the midline incision today, both incisions dressings were changed today. Jacob Parsons new accounts representative will continue to adjust the spinal cord stimulator settings, transitioning the patient to full dosage therapy to better manage pain. The patient is instructed to monitor for any changes in pain or incision site and to follow up as needed. Hygiene limitations were explained to the patient. He would need to continue to wear abdominal binder for another 5 weeks. All questions and concerns have been answered and patient agreed with the treatment plan. Follow-up as needed. Patient was informed and verbally consented to the use of an ambient scribe for clinic note documentation during this visit. Coding Level of Care Code Est Pt Level 3 (58374) Complex EM visit Add On G2211 Diagnoses Vertebrogenic low back pain M54.51 Sacroiliac joint dysfunction of both sides M53.3 Disc degeneration, lumbar M51.369 Chronic pain syndrome G89.4 Lumbar spondylosis M47.816 Radiculopathy, lumbar region M54.16 Peripheral neuropathy G62.9
--- OUTSIDE RECORDS SUMMARY | 2024-11-16 10:09 | XMS_ITS | Clinical Summary ---
Author Organization [facility] Address [address] [place] [address] Care Team Providers Care Ms Sql Server Developer Name Role Phone Phil Carrillo MD Primary Care Provider [phone] Allergies No known active allergies Medications Medication [...] age to complete this topic Care Teams Ms Sql Server Developer Relationship Specialty Start Date End Date Phil Carrillo MD [address] [place] [id number] PCP - General Family Medicine 01/13/22
== END 2024-11-16 10:18 | disposition home or self-care (01) ==
LOC: HO.PMC 09:42
PROVIDERS: PCP Internal Medicine; Visit Provider Nurse Practitioner Family
DX: M54.51 Vertebrogenic low back pain (principal); M53.3 Sacrococcygeal disorders, not elsewhere classified; M51.369 Other intervertebral disc degeneration, lumbar region without mention of lumbar back pain or lower extremity pain; G89.4 Chronic pain syndrome; M47.816 Spondylosis without myelopathy or radiculopathy, lumbar region; M54.16 Radiculopathy, lumbar region; G62.9 Polyneuropathy, unspecified
CPT/HCPCS: 99213; G2211

== ENCOUNTER → 2024-11-16 09:42 | Outpatient (BNVA) | payer MEDICARE, SELFPAY | PROVIDERS: PCP Internal Medicine; Visit Provider Nurse Practitioner Family | DX: M54.51 Vertebrogenic low back pain (principal); M47.816 Spondylosis without myelopathy or radiculopathy, lumbar region; M53.3 Sacrococcygeal disorders, not elsewhere classified; M51.369 Other intervertebral disc degeneration, lumbar region without mention of lumbar back pain or lower extremity pain; G89.4 Chronic pain syndrome; G57.51 Tarsal tunnel syndrome, right lower limb; G62.9 Polyneuropathy, unspecified | CPT/HCPCS: 99212 ==